=== PATIENT | male | born 1955 | race Caucasian/White ===

== ENCOUNTER 2017-08-01 19:45 | Emergency (ER) | payer BC, OTHER ==
[2017-08-01] MEDS ORDERED: HYDROcodone/Acetaminophen 10/325 mg Tablet ONE (21:04)
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
== END 2017-08-01 23:30 | disposition home or self-care (01) ==
LOC: ERS 19:45
DX: S83.92XA Sprain of unspecified site of left knee, initial encounter (principal); S83.91XA Sprain of unspecified site of right knee, initial encounter; I25.2 Old myocardial infarction; E11.9 Type 2 diabetes mellitus without complications; Z87.891 Personal history of nicotine dependence; Z79.84 Long term (current) use of oral hypoglycemic drugs; W18.30XA Fall on same level, unspecified, initial encounter

== ENCOUNTER 2018-01-12 21:28 | Inpatient (IN) | payer BC ==
[2018-01-12 23:18] LABS: #Eosinphils 0.2 thou/uL (0.0-0.7); #Lymphocytes 1.7 thou/uL (1.20-3.40); #Monocytes 0.6 thou/uL (0.11-0.59); %Basophils 0.3 % (0.0-1.0); %Eosinophils 1.7 % (0.0-10.0); %Lymphocytes 17.5 % (21.0-51.0); %Monocytes 6.5 % (0.0-10.0); Mean Corpuscular HGB CONC 33.6 g/dL (32.0-36.0); Mean Corpuscular Hemoglobin 29.6 pg (27.0-31.0); Mean Corpuscular Volume 87.9 fl (80.0-94.0); Mean Platelet Volume 6.8 fL (7.4-10.4); Platelet Count 171 thou/uL (130-400); RBC Distribution Width 12.6 % (11.5-14.5); Red Blood Cell (RBC) Count 4.05 mill/uL (4.70-6.10); White Blood Cell (WBC) Count 9.5 thou/uL (4.8-10.8)
[2018-01-12 23:53] LABS: ALT (SGPT) 37 U/L (8-55); AST (SGOT) 60 U/L (5-34); Albumin 4.1 g/dL (3.5-5.0); Alkaline Phosphatase 146 U/L (40-150); Anion Gap 13 mmol/L (10-20); BUN (Urea Nitrogen) 24 mg/dL (8.4-25.7); Bilirubin, Total 0.5 mg/dL (0.2-1.2); Calc. Creatinine Clearance 0 mL/min (70-130); Calcium 10.8 mg/dL (7.8-10.44); Carbon Dioxide 30 mmol/L (22-29); Chloride 94 mmol/L (98-107); Estimated GFR-MDRD 47; Globulin 4.3 g/dL (2.4-3.5); Glucose 386 mg/dL (70-105); Potassium 4.5 mmol/L (3.5-5.1); Protein, Total 8.4 g/dL (6.0-8.3); Sodium 132 mmol/L (136-145)
[2018-01-13] MEDS ORDERED: Sodium Chloride 0.9% 0 ML ONE (00:46)
[2018-01-13] MEDS ORDERED: Mag-Al 1200 mg/1200 mg/30 ML UDCUP ONE (00:46)
[2018-01-13] MEDS ORDERED: Piperacillin/Tazobactam 4.5 GM VIAL ONE (00:46)
[2018-01-13] MEDS ORDERED: Sodium Chloride 0.9% 100 ML ONE (00:47)
[2018-01-13 02:03] VITALS: BMI 41.2
[2018-01-13] MEDS ORDERED: Dextrose 5% in Water 1,000 ML IV PRN ×2 (02:11→10:41)
[2018-01-13] MEDS ORDERED: Senokot 8.6 MG TAB PO PRN (02:11)
[2018-01-13] MEDS ORDERED: Acetaminophen 325 MG TAB PO PRN (02:11)
[2018-01-13] MEDS ORDERED: Dextrose 50% Abboject 50 ML SYRINGE SLOW IVP PRN ×2 (02:11→10:41)
[2018-01-13] MEDS ORDERED: Enoxaparin Sodium 40 MG/0.4 ML SYRINGE SC SCH (02:15)
--- NOTE | 2018-01-13 02:30 | PDOC.FPRHP ---
- History of Present Illness Chief Complaint: diabetic foot ulcer History of Present Illness: 62 M comes in for evaluation of diabetic foot ulcer. Was seen in clinic 1 week ago and started on clindamycin, was told would receive wound care referral but was never called for appointment. was changing dressing and there was more purulence today so she decided to take patient to Ed for further evaluation. Patient states there is mild increase in typical neuropathic pain, describe as shock, no other pain. Denies fevers, chills, or sweats. Has noticed redness in legs increasing over the last few days. ED Course: Magnesium, vanc, zosyn 3V foot X-ray - Allergies/Adverse Reactions Allergies Allergy/AdvReac Type Severity Reaction Status Date / Time codeine Allergy Verified 03/13/16 08:45 Fish Containing Products Allergy Verified 03/13/16 08:45 - Home Medications Medication Instructions Recorded Confirmed Type Glimepiride [Amaryl] 4 mg PO BID 03/13/16 01/13/18 History metFORMIN HCl 1,000 mg PO BID 03/13/16 01/13/18 History Aspirin [Ecotrin Regular Strength] 325 mg PO DAILY #0 tab 03/18/16 01/13/18 Rx Carvedilol [Coreg] 12.5 mg PO BID #0 tab 03/18/16 01/13/18 Rx Lisinopril [Zestril] 2.5 mg PO DAILY #0 tab 03/18/16 01/13/18 Rx Amitriptyline HCl [Elavil] 100 mg PO HS 01/13/18 01/13/18 History Cholecalciferol (Vitamin D3) 1,000 unit PO DAILY 01/13/18 01/13/18 History [Vitamin D] Clindamycin [Cleocin] 150 mg PO BID 01/13/18 01/13/18 History Furosemide [Lasix] 40 mg PO DAILY 01/13/18 01/13/18 History Gabapentin 300 mg PO TID 01/13/18 01/13/18 History Hydrochlorothiazide 25 mg PO DAILY 01/13/18 01/13/18 History Insulin Glargine,Hum.Rec.Anlog 32 units SQ DAILY 01/13/18 01/13/18 History [Lantus] Potassium Chloride [K-Dur] 20 meq PO DAILY 01/13/18 01/13/18 History - History PMHx: PR 2 years ago, DM2 PSHx: CABG, appendectomy FHx: non-contributory Social: 27 year 2 ppd smoker, quit 1 year ago, no alcohol, occassional marijuana - Review of Systems General: denies: fever/chills, night sweats, fatigue Eyes: denies: eye pain, vision changes ENT: denies: nasal congestion, rhinorrhea Respiratory: denies: cough, congestion, shortness of breath Cardiovascular: reports: edema. denies: chest pain, palpitation Gastrointestinal: denies: nausea, diarrhea, constipation, abdominal pain, GI bleeding Genitourinary: denies: dysuria, polyuria Skin: reports: other (see hpi) Musculoskeletal: denies: pain, arthritis/arthralgias Neurological: denies: numbness, weakness Psychological: denies: anxiety, depression - Vital signs BP: 131/78 HR: 102 RR: Tmax: 99.4 Pox: 96% on RA Wt: 150kg - Physical Exam Constitutional: NAD, awake, alert and oriented HEENT: normocephalic and atraumatic, PERRLA, EOMI, grossly normal vision, MMM Neck: supple, FROM Heart: RRR, normal S1/S2, no murmurs/rubs/gallops -Heart: pulses present but dull at lower extremities, +2 pitting edema of the feet Lungs: CTAB, no respiratory distress, good air movement Abdomen: soft, non-tender, bowel sounds present Musculoskeletal: normal structure, ROM grossly normal Neurological: no focal deficit, CN II-XII intact, normal sensation -Neurological: sensation intact at feet bilaterally Skin: other (2cm ulcer on inferior lateral aspect of L foot, no active oozing) Heme/Lymphatic: no unusual bruising or bleeding Psychiatric: normal mood and affect FMR H&P: Results - Labs Result Diagrams: 01/13/18 03:40 01/13/18 03:40 Lab results: WBC 9.5 thou/uL (4.8-10.8) 01/12/18 23:07 Hgb 12.0 g/dL (14.0-18.0) L 01/12/18 23:07 Hct 35.6 % (42.0-52.0) L 01/12/18 23:07 MCV 87.9 fl (80.0-94.0) 01/12/18 23:07 Plt Count 171 thou/uL (130-400) 01/12/18 23:07 Neutrophils % 74.0 % (42.0-75.0) 01/12/18 23:07 Sodium 132 mmol/L (136-145) L 01/12/18 23:07 Potassium 4.5 mmol/L (3.5-5.1) 01/12/18 23:07 Chloride 94 mmol/L (98-107) L 01/12/18 23:07 Carbon Dioxide 30 mmol/L (22-29) H 01/12/18 23:07 BUN 24 mg/dL (8.4-25.7) 01/12/18 23:07 Creatinine 1.53 mg/dL (0.6-1.3) H 01/12/18 23:07 Glucose 386 mg/dL (70-105) H 01/12/18 23:07 Calcium 10.8 mg/dL (7.8-10.44) H 01/12/18 23:07 Total Bilirubin 0.5 mg/dL (0.2-1.2) 01/12/18 23:07 AST 60 U/L (5-34) H 01/12/18 23:07 ALT 37 U/L (8-55) 01/12/18 23:07 Alkaline Phosphatase 146 U/L (40-150) 01/12/18 23:07 Serum Total Protein 8.4 g/dL (6.0-8.3) H 01/12/18 23:07 Albumin 4.1 g/dL (3.5-5.0) 01/12/18 23:07 FMR H&P: A/P - Problem List (1) Diabetic foot ulcer Current Visit: Yes Status: Acute Code(s): E11.621 - TYPE 2 DIABETES MELLITUS WITH FOOT ULCER; L97.509 - NON-PRESSURE CHRONIC ULCER OTH PRT UNSP FOOT W UNSP SEVERITY (2) Abscess or cellulitis of foot Current Visit: Yes Status: Acute Code(s): L03.119 - CELLULITIS OF UNSPECIFIED PART OF LIMB; L02.619 - CUTANEOUS ABSCESS OF UNSPECIFIED FOOT (3) Nicotine abuse Current Visit: No Status: Acute Code(s): Z72.0 - TOBACCO USE (4) S/P CABG (coronary artery bypass graft) Current Visit: No Status: Acute Code(s): Z95.1 - PRESENCE OF AORTOCORONARY BYPASS GRAFT (5) Diabetes mellitus type 2 in obese Current Visit: No Status: Chronic Code(s): E11.9 - TYPE 2 DIABETES MELLITUS WITHOUT COMPLICATIONS; E66.9 - OBESITY, UNSPECIFIED (6) Morbid obesity Current Visit: No Status: Chronic Code(s): E66.01 - MORBID (SEVERE) OBESITY DUE TO EXCESS CALORIES - Plan # Cellulitus 2/2 diabetic foot ulcer - failed outpt. Clinda - Vanc/Zosyn - blood, wound cx pending - Wound care consulted - consider surgery consult for debridement - consider MRI to r/o osteo pending x-ray read, CRP/ESR - 3v foot x-ray pending - CRP, ESR pending # DM2 - titrating up outpatient lantus, currently at 32U daily - sugars have been above 300 - will start at Levemir 20BID - Accucheck qAC-HS - gabapentin 300 TID for neuropathic pain - Metformin 1000 BID, glimeperide 4mg - A1C # KIRSTIN - Cr 1.5 , baseline 1 - will hold lasix # HTN - home meds # Code - full # PPx - lovenox, SCDs FMR H&P: Upper Level - Pertinent history 62 male with uncontrolled DM who presents with 1 week of worsening foot ulcer of Left foot. He was started on outpatient clindamycin on tuesday but pain has worsened as well as glucose control. He has never had foot ulcer before and has never had any toes amputated. - Pertinent findings Gen: obese male in no acute distress HEENT: NC/AT, CONCEPCION,EOMI, MMM Resp: CTA, normal work of breathing CV: RRR, normal S1, S2, no murmur ABD: Soft nontender, nondistended Extremities: 1.5 cm ulcer on medial side of Left foot over distal portion of 5th metarsal. Surrounding tissue is cummings and tender. 1+ pitting edema in LE, pulses 2+ Psych: calm, normal affect and mood Neuro: moves all extremities symmetrically. He has loss of sensation competlely in toes and loss of sensation to light touch in legs. - Plan Date/Time: 01/13/18227 Chandra Bradley, have evaluated this patient and agree with findings/plan as outlined by consumer insights intern resident. Pertinent changes/additions are listed here. 1. Infected diabetic foot ulcer, Left foot, concern for osteomyolitis- Continue vanc and zosyn. pending plain film read. will consider MRI based on ESR and CRP 2. uncontrolled DM- started on insulin this week and is uptitrating. Will put on levemir 20 BID to start. Give 10 units of regular insulin now. 3. KIRSTIN vs CKD- unknown baseline but i suspect he has KIRSTIN. Will recheck in AM and add gentle fluids if needed. 4. peripheral edema- will hold on fluids for now but allow for oral fluids. will recheck in AM. 5. CAD- continue asa, beta shantel and RUBENS inhibitor 6. Tobacco abuse 7. Obesity- discussed role in diabetes. Attending Addendum - Attending Addendum Date/Time: 01/13/18 8445 I personally evaluated the patient and discussed the management with Dr. Limon/ Lacey. I agree with the History, Examination, Assessment and Plan documented above with any addition or exceptions noted below. Patient with history of uncontrolled DM presenting with infection and deep diabetic foot ulcer. He also has elevated ESR but no XR evidence of osteomyelitis. He will be started on antibiotic therapy, wound care, and will consult surgery for likely debridement. He was recently started on insulin therapy by PCP and we will escalate that therapy while here and maximize glycemic control as it will be very important for wound healing and decreasing infection.
[2018-01-13] MEDS ORDERED: NPH, Human Insulin Isophane 300 UNIT/3 ML VIAL SC SCH (03:15)
[2018-01-13 04:20] LABS: #Eosinphils 0.2 thou/uL (0.0-0.7); #Lymphocytes 1.6 thou/uL (1.20-3.40); #Monocytes 0.3 thou/uL (0.11-0.59); #Neutrophils 5.8 thou/uL (1.40-6.50); %Basophils 0.5 % (0.0-1.0); %Eosinophils 2.3 % (0.0-10.0); %Lymphocytes 20.4 % (21.0-51.0); %Monocytes 4.2 % (0.0-10.0); %Neutrophils 72.5 % (42.0-75.0); Hemoglobin 11.1 g/dL (14.0-18.0); Mean Corpuscular HGB CONC 34.5 g/dL (32.0-36.0); Mean Corpuscular Hemoglobin 30.2 pg (27.0-31.0); Mean Corpuscular Volume 87.4 fl (80.0-94.0); Mean Platelet Volume 6.9 fL (7.4-10.4); Platelet Count 151 thou/uL (130-400); RBC Distribution Width 12.7 % (11.5-14.5); Red Blood Cell (RBC) Count 3.69 mill/uL (4.70-6.10); White Blood Cell (WBC) Count 8.1 thou/uL (4.8-10.8)
[2018-01-13 04:28] LABS: Anion Gap 13 mmol/L (10-20); BUN (Urea Nitrogen) 22 mg/dL (8.4-25.7); Calc. Creatinine Clearance 129 mL/min (70-130); Calcium 10.1 mg/dL (7.8-10.44); Carbon Dioxide 26 mmol/L (22-29); Chloride 96 mmol/L (98-107); Estimated GFR-MDRD 57; Glucose 327 mg/dL (70-105); Potassium 4.1 mmol/L (3.5-5.1); Sodium 131 mmol/L (136-145)
[2018-01-13] MEDS: Piperacillin/Tazobactam 4.5 GM in Sodium Chloride 0.9% 100 ML IVPB SCH ×3 (05:21→18:37)
[2018-01-13] MEDS ORDERED: Clindamycin/D5W 900 MG in Premix Bag 1 BAG IVPB SCH (06:00)
[2018-01-13] MEDS: Insulin Detemir 100 UNITS/ML 20 UNITS in Pre-Filled Syringe 1 EACH SC SCH ×2 (07:59→22:22)
[2018-01-13] MEDS: metFORMIN 500 MG TAB PO SCH (08:00)
[2018-01-13] MEDS ORDERED: Glimepiride 4 MG TAB PO SCH (08:00)
[2018-01-13] MEDS: Hydrochlorothiazide 25 MG TAB PO SCH (08:01)
[2018-01-13] MEDS: Carvedilol 6.25 MG TAB PO SCH ×2 (08:01→18:37)
[2018-01-13] MEDS: Gabapentin 300 MG CAP PO SCH ×4 (08:02→22:28)
[2018-01-13] MEDS: Aspirin 325 mg Enteric Coated Tablet PO SCH (08:02)
[2018-01-13] MEDS: Lisinopril 2.5 MG TAB PO SCH (08:02)
[2018-01-13] MEDS: Docusate 100 MG CAP PO SCH ×2 (08:13→22:28)
--- NOTE | 2018-01-13 08:45 | RAD ---
3 VIEWS LEFT FOOT: Date: 01/13/18 COMPARISON: None. HISTORY: Left foot ulcer for 1 week. FINDINGS: Three views of the left foot show moderate dorsal soft tissue swelling. Diabetic vascular calcificati ons are seen. There is no evidence of acute fracture or dislocation. No osseous erosions are seen. IMPRESSION: Soft tissue swelling without underlying osseous abnormality. POS: OFF
[2018-01-13] MEDS ORDERED: Furosemide 40 MG/4 ML VIAL SLOW IVP SCH (09:00)
[2018-01-13] MEDS ORDERED: Carvedilol 6.25 MG TAB PO SCH (09:00)
[2018-01-13] MEDS ORDERED: Vancomycin HCl 1.5 GM in Sodium Chloride 0.9% 250 ML 300 ML IVPB SCH (09:00)
[2018-01-13] MEDS: HumaLOG 300 UNITS/3 ML VIAL SC PRN (11:55)
[2018-01-13] MEDS ORDERED: Fentanyl 100 MCG/2 ML VIAL ONE ×2 (15:54→16:03)
[2018-01-13] MEDS ORDERED: PROPOFOL 200 MG/20 ML VIAL ONE (15:56)
[2018-01-13] MEDS ORDERED: Lidocaine 1% PF 5 ML VIAL ONE (15:56)
[2018-01-13] MEDS ORDERED: Ondansetron HCl/PF 4 MG/2 ML Vial ONE (15:56)
--- NOTE | 2018-01-13 16:02 | HP ---
HISTORY OF PRESENT ILLNESS: Mr. Andrews Carbone is a 62-year-old diabetic male who presents to the em ergency room, admitted by Family Practice, fed a regular diet this morning and I was consulted for di abetic left foot ulceration. The patient has been dealing with this for sometime. He is insulin-dep endent diabetic. He is morbidly obese, 6 foot 3 inches, 330 pounds, 41 BMI. Plain radiographs do no t reveal osteomyelitis, but he has a large eschar at the metatarsophalangeal joint of the left fifth toe with a foul smell and cellulitis over the dorsum of the foot and surrounding blistering of the sk in. ALLERGIES: CODEINE and FISH PRODUCTS. TOBACCO: None. ALCOHOL: None. MEDICATIONS: Insulin 32 units daily, potassium chloride 20 mEq daily, hydrochlorothiazide 25 mg arti y, gabapentin 300 mg t.i.d., vitamin D3 daily, Elavil 100 mg at bedtime, clindamycin 50 mg b.i.d., La six 40 mg daily, aspirin 325 mg daily, Amaryl 4 mg p.o. b.i.d., Coreg 12.5 mg b.i.d., lisinopril 2.5 mg daily and metformin 1000 b.i.d. In the hospital, he has been started on vancomycin without Gram-n egative coverage. PAST SURGICAL HISTORY: Coronary artery bypass grafting x5 vessels 03/14/2016. On 10/18/2010, a rupt ured appendicitis with abscess, not amenable to percutaneous drainage. Laparoscopic converted to ope n appendectomy with drainage of the abscess, delayed wound closure. Colonoscopy never. The patient is a retired pipelayer. REVIEW OF SYSTEMS: Ten-point noncontributory otherwise. PHYSICAL EXAMINATION: VITAL SIGNS: Height 6 foot 3 inches, weigh 330 pounds, 41 BMI. Temperature 98.5, pulse 88 and blood pressure 120/64. HEENT: Unremarkable. LUNGS: Clear to auscultation. CARDIAC: Regular rate and rhythm without murmur or gallop. ABDOMEN: Soft and obese. Midline incision about the umbilicus, well-healed umbilical hernia present . EXTREMITIES: Palpable pedal pulses. Left foot plantar eschar, 3.5 cm diameter, foul smell gangrenou s necrotic wound with dorsal foot cellulitis. ASSESSMENT AND PLAN: 1. Diabetic infection, left foot. We will plan emergent exploration, most likely amputation of left fifth toe and metatarsal healing by second intention by wound VAC application. He understands the r isks and benefits and consents. 2. Diabetes mellitus. 3. Morbid obesity.
[2018-01-13] MEDS ORDERED: Midazolam HCl 2 mg/2 ml Vial ONE (16:03)
[2018-01-13] MEDS ORDERED: Insulin Regular 300 UNITS/3 ML VIAL ONE (16:08)
[2018-01-13] MEDS ORDERED: Acetaminophen 500 MG TAB PO PRN (16:39)
[2018-01-13] MEDS ORDERED: traMADol HCl 50 MG TAB PO PRN (16:39)
[2018-01-13] MEDS: Amitriptyline HCl 100 MG TAB PO SCH (22:28)
[2018-01-13] MEDS: traMADol HCl 50 MG TAB PO PRN (22:28)
[2018-01-13] MEDS: Atorvastatin Calcium 40 MG TAB PO SCH (22:28)
[2018-01-14] MEDS: Morphine 4 MG/ML VIAL SLOW IVP PRN ×2 (00:48→09:54)
[2018-01-14] MEDS: Piperacillin/Tazobactam 4.5 GM in Sodium Chloride 0.9% 100 ML IVPB SCH ×5 (02:59→20:31)
[2018-01-14 07:09] LABS: Anion Gap 13 mmol/L (10-20); BUN (Urea Nitrogen) 20 mg/dL (8.4-25.7); Calc. Creatinine Clearance 122 mL/min (70-130); Calcium 8.8 mg/dL (7.8-10.44); Carbon Dioxide 23 mmol/L (22-29); Chloride 102 mmol/L (98-107); Estimated GFR-MDRD 53; Glucose 198 mg/dL (70-105); Potassium 4.2 mmol/L (3.5-5.1); Sodium 134 mmol/L (136-145)
--- NOTE | 2018-01-14 07:58 | PDOC.FM ---
- Subjective Subjective: Patient reports that the pain in his foot has improved since the amputation. He has been off of his feet. He has some pain whenever he moves his foot though. He is tolerating a diet and denies N/V. - Objective MAR Reviewed: Yes Vital Signs & Weight: Vital Signs (12 hours) Temp Pulse Resp BP Pulse Ox 01/14/18 07:27 98.1 F 89 18 147/74 H 91 L 01/14/18 03:00 97.9 F 83 18 132/76 92 L 01/14/18 00:00 97.9 F 82 18 122/72 91 L 01/13/18 20:00 98.2 F 85 20 120/75 97 Weight Admit Weight 149.685 kg Weight 149.685 kg I&O: 01/13/18 01/14/18 01/15/18 06:59 06:59 06:59 Intake Total 800 Balance 800 Result Diagrams: 01/13/18 03:40 01/14/18 06:29 <Bonnie Paiz - Last Filed: 01/14/18 07:56> - Objective Vital Signs & Weight: Vital Signs (12 hours) Temp Pulse Resp BP BP Pulse Ox 01/15/18 08:32 140/78 01/15/18 08:31 85 140/78 01/15/18 08:00 98.2 F 85 16 01/15/18 07:09 98.2 F 85 16 140/78 91 L Weight Admit Weight 330 lb Weight 330 lb Result Diagrams: 01/13/18 03:40 01/14/18 06:29 <Flex Mcintyre - Last Filed: 01/15/18 11:20> Phys Exam - Physical Examination Constitutional: NAD HEENT: moist MMs Respiratory: no wheezing, no rales, no rhonchi, clear to auscultation bilateral Cardiovascular: RRR, no significant murmur, no rub Gastrointestinal: soft, non-tender, no distention, positive bowel sounds Musculoskeletal: no edema, pulses present Neurological: non-focal, moves all 4 limbs Psychiatric: normal affect, A&O x 3 Skin: normal turgor, cap refill <2 seconds Deviation from normal: dressing in place covering L small toe amputation <Bonnie Paiz - Last Filed: 01/14/18 07:56> Dx/Plan (1) Status post amputation of lesser toe of left foot Code(s): Z89.422 - ACQUIRED ABSENCE OF OTHER LEFT TOE(S) Status: Acute (2) Abscess or cellulitis of foot Code(s): L03.119 - CELLULITIS OF UNSPECIFIED PART OF LIMB; L02.619 - CUTANEOUS ABSCESS OF UNSPECIFIED FOOT Status: Acute (3) Diabetic foot ulcer Code(s): E11.621 - TYPE 2 DIABETES MELLITUS WITH FOOT ULCER; L97.509 - NON- PRESSURE CHRONIC ULCER OTH PRT UNSP FOOT W UNSP SEVERITY Status: Acute QualifierTitle: Diabetic foot ulcer location: toe Diabetes mellitus type : type 2 Laterality: left Non-pressure ulcer stage: unspecified non- pressure ulcer stage Qualified Code(s): E11.621 - Type 2 diabetes mellitus with foot ulcer; L97.529 - Non-pressure chronic ulcer of other part of left foot with unspecified severity; L97.529 - Non-pressure chronic ulcer of other part of left foot with unspecified severity; L97.529 - Non-pressure chronic ulcer of other part of left foot with unspecified severity; L97.529 - Non- pressure chronic ulcer of other part of left foot with unspecified severity (4) Nicotine abuse Code(s): Z72.0 - TOBACCO USE Status: Acute (5) S/P CABG (coronary artery bypass graft) Code(s): Z95.1 - PRESENCE OF AORTOCORONARY BYPASS GRAFT Status: Acute (6) Diabetes mellitus type 2 in obese Code(s): E11.9 - TYPE 2 DIABETES MELLITUS WITHOUT COMPLICATIONS; E66.9 - OBESITY , UNSPECIFIED Status: Chronic (7) Morbid obesity Code(s): E66.01 - MORBID (SEVERE) OBESITY DUE TO EXCESS CALORIES Status: Chronic - Plan Plan: Gangrenous diabetic foot ulcer on L lesser toe failed outpt. Clinda, s/p amputation on 01/[address] Paz Wound cx growing Gram + cocci in pairs, Gram + rods, Gram - rods, Gram - coccobaccilli - Vanc/Zosyn - blood, wound cx pending - Wound care consulted - General surgery on board, appreciate recs DM2 outpatient lantus at 32U daily. A1c 11.0 - sugars have improved since amputation - will start at Levemir 20BID - Accucheck qAC-HS - gabapentin 300 TID for neuropathic pain - Metformin 1000 BID, glimeperide 4mg KIRSTIN - Cr 1.36 , baseline 1 - will hold lasix - Monitor HTN - home meds <Bonnie Paiz - Last Filed: 01/14/18 07:56> Attending Addendum - Attending Addendum Date/Time: 01/15/18 1118 I personally evaluated the patient and discussed the management with Dr. Paiz I agree with the History, Examination, Assessment and Plan documented above with any addition or exceptions noted below. The patient is POD # 1 s/p L small toe amputation with Dr. Paz for gangrenous diabetic toe ulcer. Will continue IV abx. Wound care eval. Pain control with PO pain medication. <Flex Mcintyre - Last Filed: 01/15/18 11:20>
[2018-01-14] MEDS: traMADol HCl 50 MG TAB PO PRN ×3 (08:50→20:31)
[2018-01-14] MEDS: Aspirin 325 mg Enteric Coated Tablet PO SCH (08:50)
[2018-01-14] MEDS: Carvedilol 6.25 MG TAB PO SCH ×2 (08:51→16:42)
[2018-01-14] MEDS: metFORMIN 500 MG TAB PO SCH (08:52)
[2018-01-14] MEDS: Gabapentin 300 MG CAP PO SCH ×3 (08:52→20:30)
[2018-01-14] MEDS: Docusate 100 MG CAP PO SCH ×2 (08:53→20:31)
[2018-01-14] MEDS: Hydrochlorothiazide 25 MG TAB PO SCH (08:53)
[2018-01-14] MEDS: Insulin Detemir 100 UNITS/ML 20 UNITS in Pre-Filled Syringe 1 EACH SC SCH ×2 (08:54→20:33)
[2018-01-14] MEDS: Lisinopril 2.5 MG TAB PO SCH (08:55)
[2018-01-14] MEDS ORDERED: Morphine 4 MG/ML VIAL SLOW IVP PRN (10:22)
[2018-01-14] MEDS: HumaLOG 300 UNITS/3 ML VIAL SC PRN ×3 (11:33→20:34)
[2018-01-14] MEDS: Acetaminophen 500 MG TAB PO SCH ×3 (13:56→23:46)
[2018-01-14 20:28] LABS: Vancomycin, Trough 22.3 ug/mL
[2018-01-14] MEDS: Amitriptyline HCl 100 MG TAB PO SCH (20:30)
[2018-01-14] MEDS: Atorvastatin Calcium 40 MG TAB PO SCH (20:30)
[2018-01-14] MEDS: Vancomycin HCl 1.5 GM in Sodium Chloride 0.9% 250 ML 300 ML IVPB SCH (21:41)
[2018-01-15] MEDS: Piperacillin/Tazobactam 4.5 GM in Sodium Chloride 0.9% 100 ML IVPB SCH ×4 (03:45→21:50)
[2018-01-15] MEDS: Acetaminophen 500 MG TAB PO SCH ×4 (05:06→23:14)
[2018-01-15] MEDS: HumaLOG 300 UNITS/3 ML VIAL SC PRN ×3 (05:09→16:26)
--- NOTE | 2018-01-15 07:51 | PDOC.FM ---
- Subjective Subjective: Patient reports that his pain is well controlled when he stays off of his foot, but he has pain when he puts any pressure on his foot at all. He is tolerating PO well. He has not had a BM since being in the hospital, but he is passing flatus. - Objective MAR Reviewed: Yes Vital Signs & Weight: Vital Signs (12 hours) Temp Pulse Resp BP Pulse Ox 01/15/18 07:09 98.2 F 85 16 140/78 91 L 01/14/18 20:00 97.9 F 82 18 Weight Admit Weight 149.685 kg Weight 149.685 kg Result Diagrams: 01/13/18 03:40 01/14/18 06:29 <Bonnie Paiz - Last Filed: 01/15/18 07:49> - Objective Vital Signs & Weight: Vital Signs (12 hours) Temp Pulse Resp BP BP Pulse Ox 01/15/18 08:32 140/78 01/15/18 08:31 85 140/78 01/15/18 08:00 98.2 F 85 16 01/15/18 07:09 98.2 F 85 16 140/78 91 L Weight Admit Weight 330 lb Weight 330 lb Result Diagrams: 01/13/18 03:40 01/14/18 06:29 <Flex Mcintyre - Last Filed: 01/15/18 11:21> Phys Exam - Physical Examination Constitutional: NAD HEENT: moist MMs Respiratory: no wheezing, no rales, no rhonchi, clear to auscultation bilateral Cardiovascular: RRR, no significant murmur, no rub Gastrointestinal: soft, non-tender, no distention, positive bowel sounds Musculoskeletal: no edema, pulses present Neurological: non-focal, normal sensation Psychiatric: normal affect, A&O x 3 Deviation from normal: Dressing in place with wound vac over L small toe amputation <Bonnie Paiz - Last Filed: 01/15/18 07:49> Dx/Plan (1) Status post amputation of lesser toe of left foot Code(s): Z89.422 - ACQUIRED ABSENCE OF OTHER LEFT TOE(S) Status: Acute (2) Abscess or cellulitis of foot Code(s): L03.119 - CELLULITIS OF UNSPECIFIED PART OF LIMB; L02.619 - CUTANEOUS ABSCESS OF UNSPECIFIED FOOT Status: Acute (3) Diabetic foot ulcer Code(s): E11.621 - TYPE 2 DIABETES MELLITUS WITH FOOT ULCER; L97.509 - NON- PRESSURE CHRONIC ULCER OTH PRT UNSP FOOT W UNSP SEVERITY Status: Acute QualifierTitle: Diabetic foot ulcer location: toe Diabetes mellitus type : type 2 Laterality: left Non-pressure ulcer stage: unspecified non- pressure ulcer stage Qualified Code(s): E11.621 - Type 2 diabetes mellitus with foot ulcer; L97.529 - Non-pressure chronic ulcer of other part of left foot with unspecified severity; L97.529 - Non-pressure chronic ulcer of other part of left foot with unspecified severity; L97.529 - Non-pressure chronic ulcer of other part of left foot with unspecified severity; L97.529 - Non- pressure chronic ulcer of other part of left foot with unspecified severity (4) Nicotine abuse Code(s): Z72.0 - TOBACCO USE Status: Acute (5) S/P CABG (coronary artery bypass graft) Code(s): Z95.1 - PRESENCE OF AORTOCORONARY BYPASS GRAFT Status: Acute (6) Diabetes mellitus type 2 in obese Code(s): E11.9 - TYPE 2 DIABETES MELLITUS WITHOUT COMPLICATIONS; E66.9 - OBESITY , UNSPECIFIED Status: Chronic (7) Morbid obesity Code(s): E66.01 - MORBID (SEVERE) OBESITY DUE TO EXCESS CALORIES Status: Chronic - Plan Plan: Gangrenous diabetic foot ulcer on L lesser toe failed outpt. Clinda, s/p amputation on 01/[address] Paz Wound cx growing Gram + cocci in pairs, Gram + rods, Gram - rods, Gram - coccobaccilli - Vanc/Zosyn - blood, wound cx pending - Wound care consulted - General surgery on board, appreciate recs DM2 outpatient lantus at 32U daily. A1c 11.0 - sugars have improved since amputation - Levemir 20BID - Accucheck qAC-HS - gabapentin 300 TID for neuropathic pain - Metformin 1000 BID, glimeperide 4mg KIRSTIN - Cr 1.36, baseline 1 - will hold lasix - Monitor HTN - home meds <Bonnie Paiz - Last Filed: 01/15/18 07:49> Attending Addendum - Attending Addendum Date/Time: 01/15/18 1120 I personally evaluated the patient and discussed the management with Dr. Paiz I agree with the History, Examination, Assessment and Plan documented above with any addition or exceptions noted below. The patient is POD # 2 s/p L small toe amputation with Dr. Paz for gangrenous diabetic toe ulcer. Will continue IV abx. Wound care for wound vac. Pain control with PO pain medication. Patient is constipated, so will give bowel regimen. <Flex Mcintyre - Last Filed: 01/15/18 11:21>
[2018-01-15] MEDS: Polyethylene Glycol 3350 17 GM Packet PO SCH (08:31)
[2018-01-15] MEDS: Gabapentin 300 MG CAP PO SCH ×3 (08:31→21:48)
[2018-01-15] MEDS: Senokot S 8.6-50 MG TAB PO SCH ×2 (08:31→21:49)
[2018-01-15] MEDS: Hydrochlorothiazide 25 MG TAB PO SCH (08:31)
[2018-01-15] MEDS: Docusate 100 MG CAP PO SCH (08:31)
[2018-01-15] MEDS: Lisinopril 2.5 MG TAB PO SCH (08:31)
[2018-01-15] MEDS: metFORMIN 500 MG TAB PO SCH (08:32)
[2018-01-15] MEDS: Aspirin 325 mg Enteric Coated Tablet PO SCH (08:32)
[2018-01-15] MEDS: Carvedilol 6.25 MG TAB PO SCH ×2 (08:32→16:25)
[2018-01-15] MEDS: Insulin Detemir 100 UNITS/ML 20 UNITS in Pre-Filled Syringe 1 EACH SC SCH ×2 (09:39→21:51)
[2018-01-15] MEDS: Vancomycin HCl 1.5 GM in Sodium Chloride 0.9% 250 ML 300 ML IVPB SCH ×2 (09:46→21:54)
[2018-01-15] MEDS: traMADol HCl 50 MG TAB PO PRN (14:04)
[2018-01-15] MEDS: Atorvastatin Calcium 40 MG TAB PO SCH (21:48)
[2018-01-15] MEDS: Amitriptyline HCl 100 MG TAB PO SCH (21:49)
[2018-01-16] MEDS: Piperacillin/Tazobactam 4.5 GM in Sodium Chloride 0.9% 100 ML IVPB SCH ×2 (03:54→08:32)
[2018-01-16] MEDS: Acetaminophen 500 MG TAB PO SCH ×3 (05:34→17:09)
[2018-01-16] MEDS: HumaLOG 300 UNITS/3 ML VIAL SC PRN ×2 (05:34→11:53)
--- NOTE | 2018-01-16 06:17 | PDOC.FM ---
- Subjective Subjective: POD #3. Patient doing well this AM. No significant overnight events. Patient has avoided ambulating bc he thought he was told not to do so. Notes from Dr. Paz say to weight bear as tolerated and to ambulate in [place] 4x/day. Encouraged patient to ambulate with assistance. Patient still experiencing pain , particularly with wound vac changes. He inquired about pain medication today. Otherwise, patient is doing well. - Objective MAR Reviewed: Yes Vital Signs & Weight: Vital Signs (12 hours) Temp Pulse Resp BP Pulse Ox 01/15/18 20:00 98.2 F 93 20 154/66 H 92 L Weight Admit Weight 149.685 kg Weight 149.685 kg I&O: 01/14/18 01/15/18 01/16/18 06:59 06:59 06:59 Intake Total 2560 Output Total 2150 Balance 410 Result Diagrams: 01/13/18 03:40 01/16/18 07:18 EKG Reviewed by me: No Radiology Reviewed by me: Yes <Nayla Ogden - Last Filed: 01/16/18 08:39> - Objective Vital Signs & Weight: Vital Signs (12 hours) Temp Pulse Resp BP BP Pulse Ox 01/16/18 17:06 154/64 H 01/16/18 08:31 138/77 01/16/18 08:29 77 138/77 01/16/18 07:47 98.3 F 75 16 01/16/18 07:38 98.3 F 75 16 138/77 97 Weight Admit Weight 149.685 kg Weight 149.685 kg I&O: 01/15/18 01/16/18 01/17/18 06:59 06:59 06:59 Intake Total 2560 1000 Output Total 2150 2375 Balance 410 -1375 Result Diagrams: 01/13/18 03:40 01/16/18 07:18 <Zaria Heller - Last Filed: 01/16/18 19:07> Phys Exam - Physical Examination Constitutional: NAD HEENT: moist MMs Neck: no nodes Respiratory: clear to auscultation bilateral Cardiovascular: RRR, no significant murmur Gastrointestinal: soft, non-tender, no distention, positive bowel sounds Mild LE edema bilaterally Neurological: non-focal Psychiatric: normal affect Skin: normal turgor Deviation from normal: Wound dressing and wound vac in place over left lower extremity <Nayla Ogden - Last Filed: 01/16/18 08:39> Dx/Plan (1) Status post amputation of lesser toe of left foot Code(s): Z89.422 - ACQUIRED ABSENCE OF OTHER LEFT TOE(S) Status: Acute (2) Abscess or cellulitis of foot Code(s): L03.119 - CELLULITIS OF UNSPECIFIED PART OF LIMB; L02.619 - CUTANEOUS ABSCESS OF UNSPECIFIED FOOT Status: Acute (3) Diabetic foot ulcer Code(s): E11.621 - TYPE 2 DIABETES MELLITUS WITH FOOT ULCER; L97.509 - NON- PRESSURE CHRONIC ULCER OTH PRT UNSP FOOT W UNSP SEVERITY Status: Chronic QualifierTitle: Diabetic foot ulcer location: toe Diabetes mellitus type : type 2 Laterality: left Non-pressure ulcer stage: unspecified non- pressure ulcer stage Qualified Code(s): E11.621 - Type 2 diabetes mellitus with foot ulcer; L97.529 - Non-pressure chronic ulcer of other part of left foot with unspecified severity; L97.529 - Non-pressure chronic ulcer of other part of left foot with unspecified severity; L97.529 - Non-pressure chronic ulcer of other part of left foot with unspecified severity; L97.529 - Non- pressure chronic ulcer of other part of left foot with unspecified severity (4) Nicotine abuse Code(s): Z72.0 - TOBACCO USE Status: Chronic (5) S/P CABG (coronary artery bypass graft) Code(s): Z95.1 - PRESENCE OF AORTOCORONARY BYPASS GRAFT Status: Chronic (6) Diabetes mellitus type 2 in obese Code(s): E11.9 - TYPE 2 DIABETES MELLITUS WITHOUT COMPLICATIONS; E66.9 - OBESITY , UNSPECIFIED Status: Chronic (7) Morbid obesity Code(s): E66.01 - MORBID (SEVERE) OBESITY DUE TO EXCESS CALORIES Status: Chronic - Plan Plan: Gangrenous diabetic foot ulcer on L lesser toe failed outpt. Clinda, s/p amputation on 01/[address] Paz Wound cx growing strep anginosus, staph aureus, and enterococcus species - Sensitivities to vanc, but resistant to zosyn - Will d/c zosyn and continue vanc; will de-escalate pending gen sx recs - Wound care consulted - General surgery on board, appreciate recs - Pain control DM2 outpatient lantus at 32U daily. A1c 11.0 - Sugars have improved since amputation - Still requiring upwards of 16 units sliding scale insulin daily - Increase Levemir to 22 units AM and 25 units PM - Accucheck qAC-HS - Gabapentin 300 TID for neuropathic pain - Metformin 1000 BID, glimeperide 4mg KIRSTIN - Cr 1.36, baseline 1 - Will hold lasix - Monitor BMP - Cr improving HTN - Home meds Constipation - S/p bowel movement x1 - Continue bowel regimen <Nayla Ogden - Last Filed: 01/16/18 08:39> Attending Addendum - Attending Addendum Date/Time: 01/16/18 190 I personally evaluated the patient and discussed the management with Dr. Ogden. I agree with the History, Examination, Assessment and Plan documented above with any addition or exceptions noted below. The patient was concerned about pain with wound vac changes this morning. He didn't know what to expect. Will try to control pain with oral meds. He notes that he has taken hydrocodone without side effects in the past. Stopping zosyn as it is resistant. Continue vanc. f/u with surgery recs. <Zaria Heller - Last Filed: 01/16/18 19:07>
[2018-01-16 08:04] LABS: Anion Gap 11 mmol/L (10-20); BUN (Urea Nitrogen) 17 mg/dL (8.4-25.7); Calc. Creatinine Clearance 150 mL/min (70-130); Calcium 9.2 mg/dL (7.8-10.44); Carbon Dioxide 24 mmol/L (22-29); Chloride 102 mmol/L (98-107); Estimated GFR-MDRD 68; Glucose 188 mg/dL (70-105); Potassium 4.2 mmol/L (3.5-5.1); Sodium 133 mmol/L (136-145)
[2018-01-16] MEDS: Lisinopril 2.5 MG TAB PO SCH (08:29)
[2018-01-16] MEDS: Hydrochlorothiazide 25 MG TAB PO SCH (08:29)
[2018-01-16] MEDS: metFORMIN 500 MG TAB PO SCH (08:30)
[2018-01-16] MEDS: Senokot S 8.6-50 MG TAB PO SCH ×2 (08:30→20:45)
[2018-01-16] MEDS: Gabapentin 300 MG CAP PO SCH ×3 (08:30→20:45)
[2018-01-16] MEDS: Carvedilol 6.25 MG TAB PO SCH ×2 (08:31→17:06)
[2018-01-16] MEDS: Aspirin 325 mg Enteric Coated Tablet PO SCH (08:31)
[2018-01-16] MEDS: Polyethylene Glycol 3350 17 GM Packet PO SCH (08:32)
[2018-01-16] MEDS: Insulin Detemir 100 UNITS/ML 22 UNITS in Pre-Filled Syringe 1 EACH SC SCH (08:58)
[2018-01-16] MEDS ORDERED: Insulin Detemir 100 UNITS/ML 25 UNITS in Pre-Filled Syringe 1 EACH SC SCH (09:00)
[2018-01-16] MEDS: Vancomycin HCl 1.5 GM in Sodium Chloride 0.9% 250 ML 300 ML IVPB SCH (09:18)
[2018-01-16] MEDS: HYDROcodone/Acetaminophen 7.5/325 mg Tablet PO PRN ×3 (11:55→20:51)
[2018-01-16] MEDS: traMADol HCl 50 MG TAB PO PRN (14:05)
[2018-01-16] MEDS: Amitriptyline HCl 100 MG TAB PO SCH (20:44)
[2018-01-16] MEDS: Atorvastatin Calcium 40 MG TAB PO SCH (20:44)
[2018-01-16] MEDS: Amoxicillin/Potassium Clav 875 MG TAB PO SCH (20:44)
[2018-01-16] MEDS: Insulin Detemir 100 UNITS/ML 25 UNITS in Pre-Filled Syringe 1 EACH SC SCH (20:46)
[2018-01-17] MEDS: Acetaminophen 500 MG TAB PO SCH ×4 (00:20→16:57)
--- NOTE | 2018-01-17 06:24 | PDOC.FM ---
- Subjective Subjective: Patient doing well this AM. No significant overnight events. Patient slept well last night. His pain is well controlled. Discussed potential for going home if wound care got set up. Patient feels comfortable with going home on antibiotics with wound care HH or outpatient HH. - Objective MAR Reviewed: Yes Vital Signs & Weight: Vital Signs (12 hours) Temp Pulse Resp BP Pulse Ox 01/16/18 20:00 98.0 F 81 20 97 01/16/18 19:31 98.0 F 81 20 118/73 97 Weight Admit Weight 149.685 kg Weight 149.685 kg I&O: 01/15/18 01/16/18 01/17/18 06:59 06:59 06:59 Intake Total 2560 1360 Output Total 2150 4175 Balance 410 -5963 Result Diagrams: 01/13/18 03:40 01/16/18 07:18 EKG Reviewed by me: No Radiology Reviewed by me: Yes <Nayla Ogden - Last Filed: 01/17/18 08:55> - Objective Vital Signs & Weight: Vital Signs (12 hours) Temp Pulse Resp BP BP Pulse Ox 01/17/18 16:51 148/83 H 01/17/18 15:28 98.0 F 71 16 148/83 H 96 01/17/18 08:15 82 135/77 01/17/18 08:10 135/77 01/17/18 08:00 97.4 F L 82 20 97 Weight Admit Weight 149.685 kg Weight 149.685 kg I&O: 01/16/18 01/17/18 01/18/18 06:59 06:59 06:59 Intake Total 2560 1360 Output Total 2150 4175 Balance 410 -5806 Result Diagrams: 01/13/18 03:40 01/16/18 07:18 <Zaria Heller - Last Filed: 01/17/18 17:55> Phys Exam - Physical Examination Constitutional: NAD HEENT: moist MMs, sclera anicteric Neck: supple Respiratory: clear to auscultation bilateral Cardiovascular: RRR, no significant murmur Gastrointestinal: soft, non-tender, no distention, positive bowel sounds Difficult to palpate pulses Trace edema of LE's Neurological: non-focal Psychiatric: normal affect Deviation from normal: Left foot wrapped by wound care with wound vac in place -: No surrounding erythema <Bentley Ogdenistyn - Last Filed: 01/17/18 08:55> Dx/Plan (1) Status post amputation of lesser toe of left foot Code(s): Z89.422 - ACQUIRED ABSENCE OF OTHER LEFT TOE(S) Status: Acute (2) Abscess or cellulitis of foot Code(s): L03.119 - CELLULITIS OF UNSPECIFIED PART OF LIMB; L02.619 - CUTANEOUS ABSCESS OF UNSPECIFIED FOOT Status: Acute (3) Diabetic foot ulcer Code(s): E11.621 - TYPE 2 DIABETES MELLITUS WITH FOOT ULCER; L97.509 - NON- PRESSURE CHRONIC ULCER OTH PRT UNSP FOOT W UNSP SEVERITY Status: Chronic QualifierTitle: Diabetic foot ulcer location: toe Diabetes mellitus type : type 2 Laterality: left Non-pressure ulcer stage: unspecified non- pressure ulcer stage Qualified Code(s): E11.621 - Type 2 diabetes mellitus with foot ulcer; L97.529 - Non-pressure chronic ulcer of other part of left foot with unspecified severity; L97.529 - Non-pressure chronic ulcer of other part of left foot with unspecified severity; L97.529 - Non-pressure chronic ulcer of other part of left foot with unspecified severity; L97.529 - Non- pressure chronic ulcer of other part of left foot with unspecified severity (4) Nicotine abuse Code(s): Z72.0 - TOBACCO USE Status: Chronic (5) S/P CABG (coronary artery bypass graft) Code(s): Z95.1 - PRESENCE OF AORTOCORONARY BYPASS GRAFT Status: Chronic (6) Diabetes mellitus type 2 in obese Code(s): E11.9 - TYPE 2 DIABETES MELLITUS WITHOUT COMPLICATIONS; E66.9 - OBESITY , UNSPECIFIED Status: Chronic (7) Morbid obesity Code(s): E66.01 - MORBID (SEVERE) OBESITY DUE TO EXCESS CALORIES Status: Chronic - Plan Plan: Gangrenous diabetic foot ulcer on L lesser toe failed outpt. Clinda, s/p amputation on 01/[address] Paz Wound cx growing strep anginosus, staph aureus, and enterococcus species - Sensitivities to vanc, but resistant to zosyn - Transitioned to PO antibiotics yesterday; will continue for 10 days - Wound care consulted; Will need wound vac changes in outpatient clinic or - General surgery on board, appreciate recs - Pain control - Patient to follow up with Dr. Paz 2-3 weeks post-discharge DM2 outpatient lantus at 32U daily. A1c 11.0 - Sugars have improved since amputation - Required 6 units of SSI yesterday - Increase Levemir to 22 units AM and 25 units PM - Accucheck qAC-HS - Gabapentin 300 TID for neuropathic pain - Metformin 1000 BID, glimeperide 4 mg KIRSTIN, resolved - Baseline 1 - Cr improving HTN - Home meds Constipation - S/p bowel movement x1 - Continue bowel regimen Dispo: Anticipate discharge home today on oral antibiotics with close general surgery follow up in 2-3 weeks. Discharge pending getting set up for wound vac vs outpatient wound vac changes <Nayla Ogden - Last Filed: 01/17/18 08:55> Attending Addendum - Attending Addendum Date/Time: 01/17/18 3106 I personally evaluated the patient and discussed the management with Dr. Ogden. I agree with the History, Examination, Assessment and Plan documented above with any addition or exceptions noted below. Patient may be able to discharge today if wound care is set up. Will give order for walker. Transitioning to po antibiotics. <Zaria Heller - Last Filed: 01/17/18 17:55>
[2018-01-17] MEDS: Amoxicillin/Potassium Clav 875 MG TAB PO SCH ×2 (08:06→19:42)
[2018-01-17] MEDS: metFORMIN 500 MG TAB PO SCH (08:07)
[2018-01-17] MEDS: Senokot S 8.6-50 MG TAB PO SCH ×2 (08:07→19:42)
[2018-01-17] MEDS: HYDROcodone/Acetaminophen 7.5/325 mg Tablet PO PRN ×3 (08:08→22:22)
[2018-01-17] MEDS: Carvedilol 6.25 MG TAB PO SCH ×2 (08:10→16:51)
[2018-01-17] MEDS: Hydrochlorothiazide 25 MG TAB PO SCH (08:10)
[2018-01-17] MEDS: Gabapentin 300 MG CAP PO SCH ×3 (08:10→19:42)
[2018-01-17] MEDS: Aspirin 325 mg Enteric Coated Tablet PO SCH (08:11)
[2018-01-17] MEDS: Polyethylene Glycol 3350 17 GM Packet PO SCH (08:11)
[2018-01-17] MEDS: Lisinopril 2.5 MG TAB PO SCH (08:15)
[2018-01-17] MEDS: Insulin Detemir 100 UNITS/ML 22 UNITS in Pre-Filled Syringe 1 EACH SC SCH (08:58)
--- NOTE | 2018-01-17 12:42 | OP ---
DATE OF PROCEDURE: 01/13/2018 PREOPERATIVE DIAGNOSIS: Diabetic gangrene left small toe with gas in the soft tissues and neuropathi c ulceration and gangrene, medial metatarsophalangeal joint area. POSTOPERATIVE DIAGNOSIS: Diabetic gangrene left small toe with gas in the soft tissues and neuropath ic ulceration and gangrene, medial metatarsophalangeal joint area. PROCEDURE PERFORMED: Amputation of left small toe and metatarsal, culture and sensitivity submitted to Microbiology. Wound left open for healing by secondary intention. FINDINGS: Gangrenous tissue with gas from the soft tissues . SURGEON: Dr. Erasmo Paz. ANESTHESIA: General. BLEEDING: Resected margins. PROCEDURE IN DETAIL: The patient was taken to the operating room where under general anesthesia, lef t lower extremity was prepped with ChloraPrep, draped in routine fashion. Left small toe and metatar luis amputated with a racquet incision, preserving as much skin as possible, resecting the neuropathic ulceration, plantar lateral. The metatarsal resected with a bone cutter and resected proximally wit h rongeur. Connective tissue debrided sharply. Wound irrigated. Gauze dressing applied and VAC lisa ssing to be applied tomorrow.
[2018-01-17] MEDS: HumaLOG 300 UNITS/3 ML VIAL SC PRN (16:52)
[2018-01-17] MEDS: Insulin Detemir 100 UNITS/ML 25 UNITS in Pre-Filled Syringe 1 EACH SC SCH (19:41)
[2018-01-17] MEDS: Atorvastatin Calcium 40 MG TAB PO SCH (19:42)
[2018-01-17] MEDS: Amitriptyline HCl 100 MG TAB PO SCH (19:48)
[2018-01-18] MEDS: Acetaminophen 500 MG TAB PO SCH ×3 (00:25→11:41)
--- NOTE | 2018-01-18 05:04 | PDOC.FM ---
- Subjective Subjective: Patient doing well this AM. No significant overnight events. Waiting for potential approval for wound vac as well as walker. Otherwise, patient states he is ready to go home. He has been ambulating with minimal assistance and pain seems to be well controlled. - Objective MAR Reviewed: Yes Vital Signs & Weight: Vital Signs (12 hours) Temp Pulse Resp BP Pulse Ox 01/17/18 20:00 98.3 F 80 20 139/80 94 L Weight Admit Weight 149.685 kg Weight 149.685 kg I&O: 01/16/18 01/17/18 01/18/18 06:59 06:59 06:59 Intake Total 2560 1360 Output Total 2150 4175 Balance 410 -2815 Result Diagrams: 01/13/18 03:40 01/16/18 07:18 EKG Reviewed by me: No Radiology Reviewed by me: Yes <Nayla Ogden - Last Filed: 01/18/18 08:32> - Objective Vital Signs & Weight: Vital Signs (12 hours) Temp Pulse Resp BP BP BP Pulse Ox 01/18/18 12:04 97.9 F 78 20 146/92 H 96 01/18/18 08:00 98.1 F 77 20 95 01/18/18 07:28 134/86 01/18/18 07:26 77 134/86 01/18/18 07:21 98.1 F 77 16 134/86 95 Weight Admit Weight 149.685 kg Weight 149.685 kg I&O: 01/17/18 01/18/18 01/19/18 06:59 06:59 06:59 Intake Total 1360 Output Total 4175 Balance -2815 Result Diagrams: 01/13/18 03:40 01/16/18 07:18 <Zaria Heller - Last Filed: 01/18/18 14:21> Phys Exam - Physical Examination Constitutional: NAD HEENT: moist MMs Neck: supple Respiratory: clear to auscultation bilateral Cardiovascular: RRR, no significant murmur Gastrointestinal: soft, no distention, positive bowel sounds Pulses difficult to palpate. Trace LE edema. Neurological: non-focal Psychiatric: normal affect Deviation from normal: Left foot wrapped in bandage per wound care. -: No surrounding erythema. Wound vac in place. <Nayla Ogden - Last Filed: 01/18/18 08:32> Dx/Plan (1) Status post amputation of lesser toe of left foot Code(s): Z89.422 - ACQUIRED ABSENCE OF OTHER LEFT TOE(S) Status: Acute (2) Abscess or cellulitis of foot Code(s): L03.119 - CELLULITIS OF UNSPECIFIED PART OF LIMB; L02.619 - CUTANEOUS ABSCESS OF UNSPECIFIED FOOT Status: Acute (3) Diabetic foot ulcer Code(s): E11.621 - TYPE 2 DIABETES MELLITUS WITH FOOT ULCER; L97.509 - NON- PRESSURE CHRONIC ULCER OTH PRT UNSP FOOT W UNSP SEVERITY Status: Chronic QualifierTitle: Diabetic foot ulcer location: toe Diabetes mellitus type : type 2 Laterality: left Non-pressure ulcer stage: unspecified non- pressure ulcer stage Qualified Code(s): E11.621 - Type 2 diabetes mellitus with foot ulcer; L97.529 - Non-pressure chronic ulcer of other part of left foot with unspecified severity; L97.529 - Non-pressure chronic ulcer of other part of left foot with unspecified severity; L97.529 - Non-pressure chronic ulcer of other part of left foot with unspecified severity; L97.529 - Non- pressure chronic ulcer of other part of left foot with unspecified severity (4) Nicotine abuse Code(s): Z72.0 - TOBACCO USE Status: Chronic (5) S/P CABG (coronary artery bypass graft) Code(s): Z95.1 - PRESENCE OF AORTOCORONARY BYPASS GRAFT Status: Chronic (6) Diabetes mellitus type 2 in obese Code(s): E11.9 - TYPE 2 DIABETES MELLITUS WITHOUT COMPLICATIONS; E66.9 - OBESITY , UNSPECIFIED Status: Chronic (7) Morbid obesity Code(s): E66.01 - MORBID (SEVERE) OBESITY DUE TO EXCESS CALORIES Status: Chronic - Plan Plan: Gangrenous diabetic foot ulcer on L lesser toe failed outpt. Clinda, s/p amputation on 01/[address] Paz Wound cx growing strep anginosus, staph aureus, and enterococcus species - Transitioned to PO antibiotics 2 days ago; will continue for 14 days post- discharge, which is around when patient should be following with Dr. Paz. - Wound care consulted; Will need wound vac changes in outpatient clinic or - General surgery on board, appreciate recs - Pain control; will be sent home with tramadol script - Patient to follow up with Dr. Paz 2-3 weeks post-discharge DM2 outpatient lantus at 32U daily. A1c 11.0 - Sugars have improved since amputation - Required 2 units of SSI yesterday - Levemir to 22 units AM and 25 units PM - Accucheck qAC-HS - Gabapentin 300 TID for neuropathic pain - Metformin 1000 BID, glimeperide 4 mg KIRSTIN, resolved - Baseline 1 HTN - Home meds Constipation - S/p bowel movement x1 - Continue bowel regimen Dispo: Anticipate discharge home today on oral antibiotics with close general surgery follow up in 2-3 weeks. Discharge pending getting set up for wound vac vs outpatient wound vac changes. Also awaiting walker. <Nayla Ogden - Last Filed: 01/18/18 08:32> Attending Addendum - Attending Addendum Date/Time: 01/18/18 1420 I personally evaluated the patient and discussed the management with Dr. Ogden. I agree with the History, Examination, Assessment and Plan documented above with any addition or exceptions noted below. The patient has now been set up for outpatient wound care. He will get a walker and discharge today. <Zaria Heller - Last Filed: 01/18/18 14:21>
[2018-01-18] MEDS: Hydrochlorothiazide 25 MG TAB PO SCH (07:25)
[2018-01-18] MEDS: Aspirin 325 mg Enteric Coated Tablet PO SCH (07:25)
[2018-01-18] MEDS: Gabapentin 300 MG CAP PO SCH ×2 (07:26→14:21)
[2018-01-18] MEDS: Amoxicillin/Potassium Clav 875 MG TAB PO SCH (07:26)
[2018-01-18] MEDS: Lisinopril 2.5 MG TAB PO SCH (07:26)
[2018-01-18] MEDS: Senokot S 8.6-50 MG TAB PO SCH (07:27)
[2018-01-18] MEDS: metFORMIN 500 MG TAB PO SCH (07:27)
[2018-01-18] MEDS: Polyethylene Glycol 3350 17 GM Packet PO SCH (07:28)
[2018-01-18] MEDS: Carvedilol 6.25 MG TAB PO SCH (07:28)
[2018-01-18] MEDS: traMADol HCl 50 MG TAB PO PRN ×2 (07:35→14:21)
[2018-01-18] MEDS: Insulin Detemir 100 UNITS/ML 22 UNITS in Pre-Filled Syringe 1 EACH SC SCH (08:09)
[2018-01-18] MEDS: HumaLOG 300 UNITS/3 ML VIAL SC PRN (11:42)
[2018-01-18 12:05] VITALS: BP 146/92; TEMP 97.9
--- NOTE | 2018-01-19 04:56 | DIS-2 ---
DATE OF ADMISSION: 01/13/2018 DATE OF DISCHARGE: 01/18/2018 ADMITTING ATTENDING: Dr. Ramiro Zhao DISCHARGE ATTENDING: Dr. Zaria Heller RESIDENT: Dr. Nayla Ogden CONSULTATIONS 1. General Surgery, Dr. Erasmo Paz. 2. Wound Care. 3. Case Management. PROCEDURES: 1. Foot x-ray shows soft tissue swelling without underlying osseous abnormality. 2. Amputation of left small toe and metatarsal. The wound was left open for healing by secondary intention. A wound VAC was placed. PRIMARY DIAGNOSES: 1. 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 2. Diabetic foot ulcer. 3. Cellulitis of the left foot. SECONDARY DIAGNOSES: 1. Coronary artery disease status post coronary artery bypass graft. 2. Diabetes mellitus type 2. 3. Morbid obesity. 4. Tobacco use disorder. 5. Acute kidney injury. 6. Hypertension. DISCHARGE MEDICATIONS: 1. Augmentin 875 mg oral q.12 hours for a total of 14 days post-discharge. 2. Atorvastatin calcium 40 mg oral at bedtime. 3. Tramadol HCL 50 mg oral every 6 hours as needed for pain. 4. Levemir 25 units subcutaneous at bedtime. 5. Levemir 22 units subcutaneous q.a.m. 6. Metformin 1000 mg oral twice daily. 7. Glimepiride 4 mg oral twice daily. 8. Aspirin 325 mg oral daily. 9. Carvedilol 12.5 mg oral twice daily. 10. Lisinopril 2.5 mg oral daily. 11. Potassium chloride 20 mEq oral daily. 12. Amitriptyline HCL 100 mg oral at bedtime. 13. Hydrochlorothiazide 25 mg oral daily. 14. Vitamin D3 1000 units oral daily. 15. Gabapentin 300 mg oral 3 times daily. 16. Furosemide 40 mg oral daily. DISCONTINUED MEDICATIONS: 1. Clindamycin 150 mg oral twice daily. 2. Lantus 32 units subcutaneously daily was switched to Levemir 25 units in the p.m. and 22 units in the a.m. HISTORY OF PRESENT ILLNESS/HOSPITAL COURSE: This is a 62-year-old male that came in for evaluation of a diabetic foot ulcer. He was seen in clinic 1 week ago and started on clindamycin. The patient mentioned that he received a wound care referral, but was never called for an appointment. was changing the dressing and noted some purulent discharge, so she decided to take him to the emergency department for further evaluation. The patient does state that there was mild increase in typical neuropathic pain which he described as a shock, but denied any pain, otherwise. The patient denied any fever, chills, or sweats. He had noticed some redness in the leg, increasing over the last few days. In the emergency department, he was given magnesium, vancomycin, and Zosyn. A 3-view foot x-ray was performed which did not show any osseous abnormality. General Surgery was consulted. Dr. Paz performed an amputation of the left small toe and metatarsal. The wound was left open for healing by secondary intention and a wound VAC was placed. The pathology report on the surgical specimen was identified as osteomyelitis and gangrene. Wound cultures were obtained. The patient was continued on vancomycin and Zosyn until sensitivities of the wound culture resulted. The patient was noted to have a polymicrobial infection. Based on the sensitivities of the organisms identified the patient was switched to oral Augmentin, which is to be continued for 2 weeks or until the patient follows up with Dr. Paz and has his wound further evaluated. During the course of his hospital stay, the patient's pain seemed to be fairly well controlled. He was able to ambulate with minimal assistance and was discharged from physical therapy to the walking program. Prior to discharge, he was provided a walker for assistance. Of note, ESR was noted to be 83 and CRP was noted to be 7.59. The patient was noted to have an acute kidney injury upon presentation to the hospital, he was fluid resuscitated and his kidney injury improved. His BUN and creatinine improved back down to near baseline. The patient was recently started on Lantus 32 units as an outpatient for diabetes. He says he started that a little less than a week ago. His blood sugars on admission were in the upper 300s indicating poor control. He was started on Levemir twice a day, that was titrated according to the sliding scale he was requiring while hospitalized. Eventually that was titrated to 22 units a.m. and 25 units p.m. and his blood sugars remained fairly well controlled in the mid 100-200 range. The patient requested that he continue Levemir as an outpatient since it seemed to be working for him while he was in the hospital. DISPOSITION: Stable. DISCHARGE INSTRUCTIONS: 1. Location: Home. 2. Diet: Heart healthy and consistent carbohydrates diet. 3. Activity: Orthopedic limitations to include weightbearing as tolerated on the left foot, status post amputation. 4. Followup: The patient is to follow up with his primary care physician, Dr. Degroot within 7 days of discharge from the hospital to ensure that primary care physician has a chance to evaluate the patient post-discharge. Additionally, the patient has a follow up with Dr. Paz in 2-3 weeks from discharge to have the wound further evaluated. He is scheduled with outpatient wound care to have his wound VAC changed and he is to follow with those appointments as scheduled. This was all discussed with patient at length and he was in understanding of the plan and agreeable. SILAS
== END 2018-01-18 16:19 | disposition home health service (06) | DRG 240 ==
LOC: ERS 21:28 → T4-A 01-13 01:31
PROVIDERS: ADMIT Family Medicine; ATTEND Family Medicine
PROC: 0Y6N0ZF Detachment at Left Foot, Partial 5th Ray, Open Approach (ICD-10-PCS; principal; 2018-01-13)
DX: E11.52 Type 2 diabetes mellitus with diabetic peripheral angiopathy with gangrene (principal); N17.9 Acute kidney failure, unspecified; E11.40 Type 2 diabetes mellitus with diabetic neuropathy, unspecified; E11.621 Type 2 diabetes mellitus with foot ulcer; M86.8X7 Other osteomyelitis, ankle and foot; E66.01 Morbid (severe) obesity due to excess calories; L03.116 Cellulitis of left lower limb; Z68.41 Body mass index [BMI] 40.0-44.9, adult; L97.529 Non-pressure chronic ulcer of other part of left foot with unspecified severity; E11.69 Type 2 diabetes mellitus with other specified complication; I25.10 Atherosclerotic heart disease of native coronary artery without angina pectoris; Z95.1 Presence of aortocoronary bypass graft; F17.210 Nicotine dependence, cigarettes, uncomplicated; E11.628 Type 2 diabetes mellitus with other skin complications; Z79.4 Long term (current) use of insulin; K59.00 Constipation, unspecified; R60.0 Localized edema; I10 Essential (primary) hypertension
CPT/HCPCS: 36415; 36416; 80048; 80053; 80202; 83036; 85025; 85652; 86140; 87070; 87076; 87077; 87186; 87205; 88305; 88311; 93005; 93010; 96365; 96375; A4216; G8978-GP-CJ; G8979-GP-CJ; G8980-GP-CJ; J1650; J1815; J2001; J2250; J2270; J2405; J2543; J2704; J3010; J3370; J7050

== ENCOUNTER 2018-01-19 08:35 | Outpatient (CLI) | payer SELFPAY ==
[2018-01-19] MEDS ORDERED: Sodium Chloride 0.9% 15 ML NEB ONE (09:00)
== END 2018-01-19 08:36 | disposition home or self-care (01) ==
LOC: WCC 08:35
PROVIDERS: ATTEND Family Medicine
DX: T81.89XD Other complications of procedures, not elsewhere classified, subsequent encounter (principal); Z89.422 Acquired absence of other left toe(s); Z91.013 Allergy to seafood; Z88.5 Allergy status to narcotic agent
CPT/HCPCS: 97602; A4218

== ENCOUNTER 2018-02-12 20:12 | Emergency (ER) | payer BC ==
--- NOTE | 2018-02-12 21:43 | RAD ---
LEFT TOE THREE VIEWS: HISTORY: A 62-year-old female with a history of a left toe amputation three weeks ago. Foul odor from dressin g. FINDINGS: Recent post amputation of the right fifth digit. There is some anterior foot soft tissue swelling. No evidence for new bony erosive or destructive changes. IMPRESSION: Status post amputation changes of the fifth digit, at the level of the mid metatarsal. No evidence f or other bony erosive or destructive changes. POS: LIVIA
[2018-02-12 21:47] LABS: #Basophils 0.1 thou/uL (0.0-0.2); #Eosinphils 0.2 thou/uL (0.0-0.7); #Lymphocytes 1.5 thou/uL (1.20-3.40); #Monocytes 0.6 thou/uL (0.11-0.59); #Neutrophils 4.6 thou/uL (1.40-6.50); %Eosinophils 3.1 % (0.0-10.0); %Lymphocytes 21.1 % (21.0-51.0); %Monocytes 8.7 % (0.0-10.0); Hemoglobin 10.7 g/dL (14.0-18.0); Mean Corpuscular HGB CONC 34.6 g/dL (32.0-36.0); Mean Corpuscular Hemoglobin 30.2 pg (27.0-31.0); Mean Corpuscular Volume 87.4 fl (80.0-94.0); Mean Platelet Volume 7.3 fL (7.4-10.4); Platelet Count 144 thou/uL (130-400); RBC Distribution Width 14.2 % (11.5-14.5); Red Blood Cell (RBC) Count 3.55 mill/uL (4.70-6.10); White Blood Cell (WBC) Count 6.9 thou/uL (4.8-10.8)
[2018-02-12] MEDS ORDERED: Ampicillin/Sulbactam 3 GM in Sodium Chloride 0.9% 100 ML IVPB SCH (22:00)
[2018-02-12 22:09] LABS: Anion Gap 16 mmol/L (10-20); BUN (Urea Nitrogen) 19 mg/dL (8.4-25.7); Calc. Creatinine Clearance 0 mL/min (70-130); Calcium 9.8 mg/dL (7.8-10.44); Carbon Dioxide 24 mmol/L (22-29); Chloride 97 mmol/L (98-107); Estimated GFR-MDRD 54; Glucose 336 mg/dL (70-105); Potassium 4.1 mmol/L (3.5-5.1); Sodium 133 mmol/L (136-145)
[2018-02-12] MEDS ORDERED: Sucralfate 1 GM/10 ML UDCUP ONE (23:12)
== END 2018-02-13 00:11 | disposition short-term general hospital (02) ==
LOC: ERS 20:12
DX: E11.621 Type 2 diabetes mellitus with foot ulcer (principal); E78.5 Hyperlipidemia, unspecified; I25.2 Old myocardial infarction; Z87.891 Personal history of nicotine dependence; Z79.899 Other long term (current) drug therapy; Z79.82 Long term (current) use of aspirin; Z79.4 Long term (current) use of insulin
CPT/HCPCS: 80048; 85025; 85652; 86140; 96365; 96367; J0295; J3370; J7050

== ENCOUNTER 2019-06-12 11:46 | Outpatient (CLI) | payer OTHER ==
--- NOTE | 2019-06-12 14:03 | RAD ---
LEFT KNEE 2 VIEWS: HISTORY: Disability exam, left knee pain. FINDINGS/IMPRESSION: Mild degenerative changes are present. No fracture, dislocation, or bony destruction is identified. Vascular calcifications are noted. POS: SHANIAH
--- NOTE | 2019-06-12 14:04 | RAD ---
AP PELVIS: HISTORY: Disability exam, hip pain. FINDINGS/IMPRESSION: Degenerative changes are seen in the hip joints bilaterally. No fracture, dislocation, or bony destr uction is identified. POS: LIVIA
--- NOTE | 2019-06-12 14:05 | RAD ---
LEFT HIP 2 VIEWS: Date: 06/12/19 HISTORY: Disability exam. Left hip pain. FINDINGS/IMPRESSION: Mild degenerative changes are present. No fracture, dislocation, or bony destruction is identified. T here are vascular calcifications. POS: LIVIA
--- NOTE | 2019-06-12 14:05 | RAD ---
RIGHT HIP 2 VIEWS: HISTORY: Right hip pain. Disability exam. FINDINGS/IMPRESSION: Mild degenerative changes are present. No fracture, dislocation, or bony destruction id identified. There are vascular calcifications. POS: SHANIAH
--- NOTE | 2019-06-12 14:08 | RAD ---
LUMBAR SPINE 2 VIEWS: HISTORY: Disability exam, back pain. FINDINGS/IMPRESSION: Multilevel degenerative changes are present. No fracture, subluxation, or bony destruction is identi fied. There are vascular calcifications. POS: LIVIA
== END 2019-06-12 11:47 | disposition home or self-care (01) ==
LOC: BICRAD 11:46
PROVIDERS: ATTEND Internal Medicine
DX: Z02.71 Encounter for disability determination (principal); M47.816 Spondylosis without myelopathy or radiculopathy, lumbar region; M16.0 Bilateral primary osteoarthritis of hip; I99.8 Other disorder of circulatory system
CPT/HCPCS: 72100; 72170

== ENCOUNTER 2021-05-28 03:03 | Emergency (ER) | payer BC, OTHER, SELFPAY | END 2021-05-28 09:54 | disposition home or self-care (01) | LOC: ERS 03:03 | DX: S70.02XA Contusion of left hip, initial encounter (principal); E78.5 Hyperlipidemia, unspecified; E78.00 Pure hypercholesterolemia, unspecified; I25.2 Old myocardial infarction; E11.40 Type 2 diabetes mellitus with diabetic neuropathy, unspecified; F17.210 Nicotine dependence, cigarettes, uncomplicated; W19.XXXA Unspecified fall, initial encounter | CPT/HCPCS: 72192; 93005 ==

== ENCOUNTER 2021-05-29 20:57 | Emergency (ER) | payer OTHER, SELFPAY ==
[2021-05-29 21:34] LABS: #Basophils 0.1 thou/uL (0.0-0.2); #Eosinphils 0.2 thou/uL (0.0-0.7); #Lymphocytes 1.3 thou/uL (1.20-3.40); #Monocytes 0.6 thou/uL (0.11-0.59); #Neutrophils 5.7 thou/uL (1.40-6.50); %Basophils 0.6 % (0.0-1.0); %Eosinophils 2.2 % (0.0-10.0); %Lymphocytes 16.2 % (21.0-51.0); %Monocytes 7.6 % (0.0-10.0); %Neutrophils 73.4 % (42.0-75.0); Hemoglobin 13.8 g/dL (14.0-18.0); Mean Corpuscular HGB CONC 35.1 g/dL (32.0-36.0); Mean Corpuscular Hemoglobin 30.4 pg (27.0-31.0); Mean Corpuscular Volume 86.7 fL (78.0-98.0); Mean Platelet Volume 7.3 fL (7.4-10.4); Platelet Count 152 thou/uL (130-400); RBC Distribution Width 15.1 % (11.5-14.5); Red Blood Cell (RBC) Count 4.54 mill/uL (4.70-6.10); White Blood Cell (WBC) Count 7.7 thou/uL (4.8-10.8)
[2021-05-29 21:57] LABS: ALT (SGPT) 24 U/L (8-55); AST (SGOT) 23 U/L (5-34); Albumin 3.8 g/dL (3.4-4.8); Alkaline Phosphatase 110 U/L (40-110); Anion Gap 15 mmol/L (10-20); BUN (Urea Nitrogen) 24 mg/dL (8.4-25.7); Bilirubin, Total 0.6 mg/dL (0.2-1.2); CK (CPK) 78 U/L (30-200); Calc. Creatinine Clearance 0 mL/min (70-130); Carbon Dioxide 27 mmol/L (23-31); Chloride 100 mmol/L (98-107); Globulin 3.9 g/dL (2.4-3.5); Glucose 279 mg/dL (80-115); Magnesium 1.9 mg/dL (1.6-2.6); Potassium 4.7 mmol/L (3.5-5.1); Protein, Total 7.7 g/dL (5.8-8.1); Sodium 137 mmol/L (136-145)
== END 2021-05-30 00:58 | disposition home or self-care (01) ==
LOC: ERS 20:57
DX: R53.1 Weakness (principal); E78.5 Hyperlipidemia, unspecified; I25.2 Old myocardial infarction; E11.9 Type 2 diabetes mellitus without complications; F17.210 Nicotine dependence, cigarettes, uncomplicated
CPT/HCPCS: 70450; 72131; 80053; 82550; 83735; 85025; 93005

== ENCOUNTER 2021-08-21 15:28 | Inpatient (IN) | payer OTHER ==
[~2021-08-21 15:28] MED LIST: Iopamidol-370 76% 500 ML 1 ML ONE
[2021-08-21] MEDS ORDERED: Heparin 10,000 UNITS/ 10 ML VIAL ONE (16:00)
[2021-08-21] MEDS ORDERED: Lidocaine 1% (PF) 30 ML VIAL ONE (16:09)
[2021-08-21 16:21] LABS: #Basophils 0.1 thou/uL (0.0-0.2); #Eosinphils 0.1 thou/uL (0.0-0.7); #Lymphocytes 1.4 thou/uL (1.20-3.40); #Monocytes 0.5 thou/uL (0.11-0.59); %Basophils 0.7 % (0.0-1.0); %Eosinophils 1.6 % (0.0-10.0); %Lymphocytes 14.8 % (21.0-51.0); %Monocytes 5.9 % (0.0-10.0); %Neutrophils 77.1 % (42.0-75.0); Hemoglobin 12.7 g/dL (14.0-18.0); Mean Corpuscular HGB CONC 33.9 g/dL (32.0-36.0); Mean Corpuscular Hemoglobin 29.9 pg (27.0-31.0); Mean Corpuscular Volume 88.2 fL (78.0-98.0); Mean Platelet Volume 7.1 fL (7.4-10.4); Platelet Count 169 thou/uL (130-400); Red Blood Cell (RBC) Count 4.26 mill/uL (4.70-6.10); White Blood Cell (WBC) Count 9.1 thou/uL (4.8-10.8)
[2021-08-21 16:42] LABS: ALT (SGPT) 13 U/L (8-55); AST (SGOT) 13 U/L (5-34); Acetaminophen Less than 6.0 mcg/mL (10.0-30.0); Albumin 3.6 g/dL (3.4-4.8); Alcohol Less than 10 mg/dL (Less than 10); Alkaline Phosphatase 105 U/L (40-110); Anion Gap 13 mmol/L (10-20); BUN (Urea Nitrogen) 22 mg/dL (8.4-25.7); Bilirubin, Total 0.4 mg/dL (0.2-1.2); CK (CPK) 85 U/L (30-200); Calc. Creatinine Clearance 0 mL/min (70-130); Calcium 9.9 mg/dL (7.8-10.44); Carbon Dioxide 30 mmol/L (23-31); Chloride 98 mmol/L (98-107); Globulin 3.7 g/dL (2.4-3.5); Glucose 191 mg/dL (80-115); Potassium 4.5 mmol/L (3.5-5.1); Protein, Total 7.3 g/dL (5.8-8.1); Salicylate Less than 8.0 mg/dL (15.0-30.0); Sodium 136 mmol/L (136-145)
[2021-08-21] MEDS ORDERED: Azithromycin 500 MG VIAL ONE (16:50)
[2021-08-21 17:02] LABS: CKMB 5.3 ng/mL (0-6.6)
[2021-08-21 18:19] LABS: INR-International Normal Ratio 0.9; PTT 34.4 sec (22.9-36.1); Prothrombin Time 12.6 sec (12.0-14.7)
[2021-08-21] MEDS ORDERED: Sodium Chloride 0.9% 1,000 ML IV SCH (18:30)
[2021-08-21] MEDS ORDERED: Cefepime 2 GM in Sodium Chloride 0.9% 100 ML IVPB SCH (18:30)
[2021-08-21] MEDS ORDERED: Heparin 25,000 units/D5W 500 ML IV SCH (18:30)
[2021-08-21 19:56] VITALS: BMI 41.1
[2021-08-21] MEDS ORDERED: Ondansetron ODT 4 MG TAB PO PRN (20:09)
[2021-08-21] MEDS ORDERED: Dextrose 5% in Water 1,000 ML IV PRN (20:12)
[2021-08-21] MEDS ORDERED: HumaLOG 300 UNITS/3 ML VIAL SC PRN (20:12)
[2021-08-21] MEDS ORDERED: Dextrose 50% Abboject 50 ML SYRINGE SLOW IVP PRN (20:12)
[2021-08-21] MEDS ORDERED: Acetaminophen 325 MG TAB PO PRN (20:15)
[2021-08-21] MEDS ORDERED: Ondansetron PF 4 MG/2 ML Vial IVP PRN (20:15)
[2021-08-21] MEDS ORDERED: Ondansetron ODT 4 MG TAB SL PRN (20:15)
[2021-08-21 21:01] LABS: Critical Call Chem Troponin I RESULT DECREASING; Troponin I 0.511 ng/mL (< 0.028)
[2021-08-21] MEDS ORDERED: methylPREDNISolone Sod Succ 40 MG VIAL IVP SCH (21:15)
[2021-08-21 21:58] LABS: SARS-CoV-2 NAA Rapid Test Not Detected (NotDetected)
[2021-08-21] MEDS: methylPREDNISolone Sod Succ 40 MG VIAL IVP SCH (22:14)
[2021-08-21 23:31] LABS: Critical Call Chem Troponin I RESULT DECREASING; Troponin I 0.468 ng/mL (< 0.028)
[2021-08-21] MEDS: Heparin 10,000 UNITS/ 10 ML VIAL SLOW IVP SCH (23:54)
[2021-08-22 05:34] LABS: #Lymphocytes 0.5 thou/uL (1.20-3.40); #Monocytes 0.1 thou/uL (0.11-0.59); #Neutrophils 7.6 thou/uL (1.40-6.50); %Basophils 0.3 % (0.0-1.0); %Eosinophils 0.5 % (0.0-10.0); %Monocytes 1.2 % (0.0-10.0); Hemoglobin 11.7 g/dL (14.0-18.0); Mean Corpuscular HGB CONC 33.3 g/dL (32.0-36.0); Mean Corpuscular Hemoglobin 29.3 pg (27.0-31.0); Mean Corpuscular Volume 87.9 fL (78.0-98.0); Mean Platelet Volume 7.2 fL (7.4-10.4); Platelet Count 142 thou/uL (130-400); RBC Distribution Width 13.8 % (11.5-14.5); Red Blood Cell (RBC) Count 3.98 mill/uL (4.70-6.10); White Blood Cell (WBC) Count 8.3 thou/uL (4.8-10.8)
[2021-08-22 05:55] LABS: Anion Gap 14 mmol/L (10-20); BUN (Urea Nitrogen) 22 mg/dL (8.4-25.7); Calc. Creatinine Clearance 111 mL/min (70-130); Calcium 9.1 mg/dL (7.8-10.44); Carbon Dioxide 23 mmol/L (23-31); Chloride 101 mmol/L (98-107); Glucose 245 mg/dL (80-115); Potassium 4.7 mmol/L (3.5-5.1); Sodium 133 mmol/L (136-145)
[2021-08-22] MEDS: Heparin 10,000 UNITS/ 10 ML VIAL SLOW IVP SCH ×2 (06:04→20:06)
[2021-08-22] MEDS: HumaLOG 300 UNITS/3 ML VIAL SC PRN ×3 (06:32→18:00)
[2021-08-22] MEDS: cefTRIAXone\\ROCEPHIN 1 GM in Sodium Chloride 0.9% 100 ML IVPB SCH (07:53)
[2021-08-22] MEDS: methylPREDNISolone Sod Succ 40 MG VIAL IVP SCH (09:35)
[2021-08-22 17:19] LABS: PTT 31.5 sec (22.9-36.1); Prothrombin Time 13.1 sec (12.0-14.7)
[2021-08-22] MEDS: Heparin 25,000 units/D5W 500 ML IV SCH (19:43)
[2021-08-22] MEDS ORDERED: HumaLOG 300 UNITS/3 ML VIAL SC PRN (20:30)
[2021-08-22] MEDS: Famotidine 20 MG TAB PO SCH (21:20)
[2021-08-22] MEDS: Atorvastatin Calcium 40 MG TAB PO SCH (21:21)
[2021-08-22] MEDS: Lantus 1000 UNITS/10 ML VIAL SC SCH (22:00)
[2021-08-22] MEDS: Mometasone 200 MCG/Formoterol 5 MCG 120 PUFF INHALER INH SCH (22:39)
[2021-08-23] MEDS ORDERED: Benzonatate 100 MG CAP PO PRN (02:01)
[2021-08-23 02:38] LABS: Critical Call Chem Troponin I RESULT DECREASING; Troponin I 0.357 ng/mL (< 0.028)
[2021-08-23 02:49] LABS: Anion Gap 14 mmol/L (10-20); BUN (Urea Nitrogen) 26 mg/dL (8.4-25.7); Calc. Creatinine Clearance 108 mL/min (70-130); Calcium 9.4 mg/dL (7.8-10.44); Carbon Dioxide 21 mmol/L (23-31); Chloride 102 mmol/L (98-107); Glucose 231 mg/dL (80-115); Potassium 4.2 mmol/L (3.5-5.1); Sodium 133 mmol/L (136-145)
[2021-08-23] MEDS: Heparin 10,000 UNITS/ 10 ML VIAL SLOW IVP SCH ×2 (03:53→09:35)
[2021-08-23] MEDS: Levothyroxine Sodium 50 MCG TAB PO SCH (06:16)
[2021-08-23] MEDS: cefTRIAXone\\ROCEPHIN 1 GM in Sodium Chloride 0.9% 100 ML IVPB SCH (06:19)
[2021-08-23] MEDS: Mometasone 200 MCG/Formoterol 5 MCG 120 PUFF INHALER INH SCH ×2 (06:55→19:19)
[2021-08-23] MEDS: Glimepiride 4 MG TAB PO SCH (07:17)
[2021-08-23] MEDS: Lisinopril 2.5 MG TAB PO SCH (08:41)
[2021-08-23] MEDS: Aspirin 81 mg Enteric Coated Tablet PO SCH (08:41)
[2021-08-23] MEDS: Gabapentin 300 MG CAP PO SCH (08:42)
[2021-08-23] MEDS: Hydrochlorothiazide 25 MG TAB PO SCH (08:42)
[2021-08-23] MEDS: Famotidine 20 MG TAB PO SCH ×2 (08:42→20:10)
[2021-08-23] MEDS: Potassium Chloride 20 MEQ TAB PO SCH (08:44)
[2021-08-23] MEDS: methylPREDNISolone Sod Succ 40 MG VIAL IVP SCH (08:44)
[2021-08-23] MEDS: Lantus 1000 UNITS/10 ML VIAL SC SCH ×2 (08:45→21:48)
[2021-08-23] MEDS ORDERED: Lisinopril 2.5 MG TAB PO SCH (09:00)
[2021-08-23] MEDS: Heparin 25,000 units/D5W 500 ML IV SCH (09:36)
[2021-08-23] MEDS: HumaLOG 300 UNITS/3 ML VIAL SC PRN (17:01)
[2021-08-23] MEDS: Sucralfate 1 GM TAB PO SCH ×2 (17:45→20:10)
[2021-08-23] MEDS: Atorvastatin Calcium 40 MG TAB PO SCH (20:11)
[2021-08-24] MEDS: Levothyroxine Sodium 50 MCG TAB PO SCH (05:54)
[2021-08-24] MEDS: cefTRIAXone\\ROCEPHIN 1 GM in Sodium Chloride 0.9% 100 ML IVPB SCH (05:55)
[2021-08-24 06:04] LABS: Anion Gap 13 mmol/L (10-20); BUN (Urea Nitrogen) 29 mg/dL (8.4-25.7); Calc. Creatinine Clearance 105 mL/min (70-130); Calcium 9.4 mg/dL (7.8-10.44); Carbon Dioxide 28 mmol/L (23-31); Chloride 101 mmol/L (98-107); Glucose 227 mg/dL (80-115); Potassium 4.5 mmol/L (3.5-5.1)
[2021-08-24 06:12] LABS: Sodium 137 mmol/L (136-145)
[2021-08-24] MEDS: HumaLOG 300 UNITS/3 ML VIAL SC PRN (06:38)
[2021-08-24] MEDS: Mometasone 200 MCG/Formoterol 5 MCG 120 PUFF INHALER INH SCH (07:17)
[2021-08-24] MEDS: Lantus 1000 UNITS/10 ML VIAL SC SCH (08:57)
[2021-08-24] MEDS: Sucralfate 1 GM TAB PO SCH ×2 (09:00→12:38)
[2021-08-24] MEDS: Gabapentin 300 MG CAP PO SCH (09:00)
[2021-08-24] MEDS: Aspirin 81 mg Enteric Coated Tablet PO SCH (09:00)
[2021-08-24] MEDS ORDERED: Bupropion 150 MG XL TAB PO SCH (09:00)
[2021-08-24] MEDS: Lisinopril 2.5 MG TAB PO SCH (09:00)
[2021-08-24] MEDS: Famotidine 20 MG TAB PO SCH (09:00)
[2021-08-24] MEDS: Hydrochlorothiazide 25 MG TAB PO SCH (09:00)
[2021-08-24] MEDS: Glimepiride 4 MG TAB PO SCH (09:00)
[2021-08-24] MEDS: Potassium Chloride 20 MEQ TAB PO SCH (09:00)
[2021-08-24] MEDS: methylPREDNISolone Sod Succ 40 MG VIAL IVP SCH (09:06)
[2021-08-24 11:52] VITALS: BP 123/75; TEMP 98.6
== END 2021-08-24 12:45 | disposition home or self-care (01) | DRG 190 ==
LOC: ERS 15:28 → CCU 17:20 → NEURO 08-22 18:47
PROVIDERS: ADMIT Internal Medicine; ATTEND Family Medicine
DX: J44.1 Chronic obstructive pulmonary disease with (acute) exacerbation (principal); I21.A1 Myocardial infarction type 2; N17.9 Acute kidney failure, unspecified; Z68.41 Body mass index [BMI] 40.0-44.9, adult; Z20.822 Contact with and (suspected) exposure to COVID-19; I25.10 Atherosclerotic heart disease of native coronary artery without angina pectoris; F17.210 Nicotine dependence, cigarettes, uncomplicated; E78.5 Hyperlipidemia, unspecified; E66.01 Morbid (severe) obesity due to excess calories; E11.22 Type 2 diabetes mellitus with diabetic chronic kidney disease; N18.30 Chronic kidney disease, stage 3 unspecified; Z95.1 Presence of aortocoronary bypass graft; Z88.5 Allergy status to narcotic agent; Z91.013 Allergy to seafood; Z79.82 Long term (current) use of aspirin; Z79.4 Long term (current) use of insulin; Z90.49 Acquired absence of other specified parts of digestive tract; Z71.6 Tobacco abuse counseling
CPT/HCPCS: 36415; 36416; 71045; 71275; 80048; 80307; 82550; 82553; 83880; 84484; 85025; 85379; 85610; 85730; 93005; 94640; 94760; J0456; J0692; J0696; J1644; J1815; J2001; J2920; J3490; J7620; Q9967; U0002

== ENCOUNTER 2021-09-08 13:21 | Observation (INO) | payer OTHER ==
[2021-09-08 14:40] LABS: Hemoglobin 10.9 g/dL (14.0-18.0); Mean Corpuscular Hemoglobin 28.7 pg (27.0-31.0); Mean Platelet Volume 7.1 fL (7.4-10.4); Platelet Count 143 thou/uL (130-400); RBC Distribution Width 14.2 % (11.5-14.5); White Blood Cell (WBC) Count 8.2 thou/uL (4.8-10.8)
[2021-09-08 15:04] LABS: Lymphocytes 17 % (21-51); MDiff Complete? YES; Monocytes 4 % (0-10); Neutrophil 79 % (42-75); Platelet Morphology Comment Appears Adequate; Polychromasia SLIGHT = 2-3 cells (100X) (0-2/hpf)
[2021-09-08 15:19] LABS: ALT (SGPT) 21 U/L (8-55); AST (SGOT) 17 U/L (5-34); Albumin 3.2 g/dL (3.4-4.8); Alkaline Phosphatase 97 U/L (40-110); Anion Gap 13 mmol/L (10-20); BUN (Urea Nitrogen) 23 mg/dL (8.4-25.7); Bilirubin, Total 0.7 mg/dL (0.2-1.2); Calc. Creatinine Clearance 0 mL/min (70-130); Calcium 9.2 mg/dL (7.8-10.44); Carbon Dioxide 19 mmol/L (23-31); Chloride 106 mmol/L (98-107); Globulin 3.7 g/dL (2.4-3.5); Glucose 230 mg/dL (80-115); Potassium 4.7 mmol/L (3.5-5.1); Protein, Total 6.9 g/dL (5.8-8.1); Sodium 133 mmol/L (136-145)
[2021-09-08] MEDS ORDERED: Furosemide 40 MG/4 ML VIAL ONE ×2 (15:28→20:33)
[2021-09-08] MEDS ORDERED: Acetaminophen 325 MG TAB ONE (15:28)
[2021-09-08 15:32] LABS: CKMB 2.7 ng/mL (0-6.6)
[2021-09-08] MEDS ORDERED: Albuterol 200 PUFF (6.7GM INHALER) ONE (15:35)
[2021-09-08] MEDS ORDERED: Dextrose 50% Abboject 50 ML SYRINGE SLOW IVP PRN (17:43)
[2021-09-08] MEDS ORDERED: Dextrose 5% in Water 1,000 ML IV PRN (17:43)
[2021-09-08 18:19] LABS: Cardiac Risk 3.1 (Less than 4.5)
[2021-09-08] MEDS ORDERED: Enoxaparin Sodium 40 MG/0.4 ML SYRINGE SC SCH (18:30)
[2021-09-08 18:54] LABS: Hemoglobin A1c 9.4 % (4.0-6.0)
[2021-09-08 19:11] LABS: Troponin I 0.125 ng/mL (< 0.028)
[2021-09-08] MEDS ORDERED: Enoxaparin Sodium 40 MG/0.4 ML SYRINGE ONE (19:35)
[2021-09-08] MEDS ORDERED: Furosemide 40 MG/4 ML VIAL SLOW IVP SCH (20:15)
[2021-09-08 21:55] LABS: Troponin I 0.122 ng/mL (< 0.028)
[2021-09-08] MEDS ORDERED: HumaLOG 300 UNITS/3 ML VIAL SC PRN (22:31)
[2021-09-08] MEDS ORDERED: Albuterol 200 PUFF (6.7GM INHALER) INH PRN (22:36)
[2021-09-09 05:50] LABS: #Eosinphils 0.1 thou/uL (0.0-0.7); #Lymphocytes 1.3 thou/uL (1.20-3.40); #Monocytes 0.5 thou/uL (0.11-0.59); #Neutrophils 5.2 thou/uL (1.40-6.50); %Basophils 0.6 % (0.0-1.0); %Eosinophils 1.2 % (0.0-10.0); %Lymphocytes 18.5 % (21.0-51.0); %Monocytes 6.8 % (0.0-10.0); %Neutrophils 72.9 % (42.0-75.0); Hemoglobin 11.3 g/dL (14.0-18.0); Mean Corpuscular HGB CONC 33.2 g/dL (32.0-36.0); Mean Corpuscular Hemoglobin 29.2 pg (27.0-31.0); Mean Corpuscular Volume 87.9 fL (78.0-98.0); Mean Platelet Volume 6.7 fL (7.4-10.4); Platelet Count 149 thou/uL (130-400); RBC Distribution Width 14.3 % (11.5-14.5); Red Blood Cell (RBC) Count 3.87 mill/uL (4.70-6.10); White Blood Cell (WBC) Count 7.1 thou/uL (4.8-10.8)
[2021-09-09] MEDS ORDERED: Furosemide 40 MG/4 ML VIAL ONE (06:08)
[2021-09-09 06:15] LABS: Anion Gap 14 mmol/L (10-20); BUN (Urea Nitrogen) 24 mg/dL (8.4-25.7); Calc. Creatinine Clearance 0 mL/min (70-130); Calcium 9.5 mg/dL (7.8-10.44); Carbon Dioxide 24 mmol/L (23-31); Chloride 103 mmol/L (98-107); Glucose 166 mg/dL (80-115); Potassium 4.2 mmol/L (3.5-5.1); Sodium 137 mmol/L (136-145)
[2021-09-09] MEDS: Furosemide 40 MG/4 ML VIAL SLOW IVP SCH ×2 (06:19→14:37)
[2021-09-09] MEDS: Mometasone 100 MCG/Formoterol 5 MCG 120 PUFF INHALER INH SCH ×2 (07:47→18:20)
[2021-09-09] MEDS ORDERED: Aspirin Chewable 81 MG TAB PO SCH (09:00)
[2021-09-09] MEDS ORDERED: Enoxaparin Sodium 40 MG/0.4 ML SYRINGE SC SCH (09:39)
[2021-09-09] MEDS: Levothyroxine Sodium 50 MCG TAB PO SCH (10:06)
[2021-09-09] MEDS: Glimepiride 4 MG TAB PO SCH (10:09)
[2021-09-09] MEDS: Sucralfate 1 GM TAB PO SCH ×4 (10:11→21:32)
[2021-09-09] MEDS: Bupropion 150 MG XL TAB PO SCH (10:11)
[2021-09-09] MEDS: Gabapentin 300 MG CAP PO SCH ×2 (10:12→21:31)
[2021-09-09] MEDS: Lisinopril 2.5 MG TAB PO SCH (10:13)
[2021-09-09] MEDS: Lantus 1000 UNITS/10 ML VIAL SC SCH (10:14)
[2021-09-09] MEDS ORDERED: Enoxaparin Sodium 40 MG/0.4 ML SYRINGE ONE (10:18)
[2021-09-09] MEDS ORDERED: Aspirin Chewable 81 MG TAB ONE (10:18)
[2021-09-09] MEDS: Aspirin 81 mg Enteric Coated Tablet PO SCH (10:20)
[2021-09-09 12:02] VITALS: BMI 40.6
[2021-09-09 14:00] LABS: SARS-CoV-2 PCR by NAA Not Detected (NotDetected)
[2021-09-09] MEDS ORDERED: Nicotine 14 MG PATCH TD SCH (16:00)
[2021-09-09] MEDS ORDERED: Amitriptyline HCl 100 MG TAB PO SCH (21:00)
[2021-09-09] MEDS ORDERED: Atorvastatin Calcium 40 MG TAB PO SCH (21:00)
[2021-09-10 05:42] LABS: #Eosinphils 0.1 thou/uL (0.0-0.7); #Lymphocytes 0.8 thou/uL (1.20-3.40); #Monocytes 0.6 thou/uL (0.11-0.59); #Neutrophils 7.4 thou/uL (1.40-6.50); %Basophils 0.4 % (0.0-1.0); %Eosinophils 1.1 % (0.0-10.0); %Lymphocytes 8.6 % (21.0-51.0); %Monocytes 6.7 % (0.0-10.0); %Neutrophils 83.2 % (42.0-75.0); Hemoglobin 11.7 g/dL (14.0-18.0); Mean Corpuscular HGB CONC 33.3 g/dL (32.0-36.0); Mean Corpuscular Hemoglobin 29.1 pg (27.0-31.0); Mean Corpuscular Volume 87.4 fL (78.0-98.0); Mean Platelet Volume 6.7 fL (7.4-10.4); Platelet Count 174 thou/uL (130-400); RBC Distribution Width 14.3 % (11.5-14.5); Red Blood Cell (RBC) Count 4.02 mill/uL (4.70-6.10); White Blood Cell (WBC) Count 8.9 thou/uL (4.8-10.8)
[2021-09-10] MEDS: Furosemide 40 MG/4 ML VIAL SLOW IVP SCH ×2 (05:42→16:02)
[2021-09-10] MEDS: Levothyroxine Sodium 50 MCG TAB PO SCH (05:42)
[2021-09-10 06:11] LABS: Anion Gap 14 mmol/L (10-20); BUN (Urea Nitrogen) 24 mg/dL (8.4-25.7); Calc. Creatinine Clearance 114 mL/min (70-130); Calcium 9.4 mg/dL (7.8-10.44); Carbon Dioxide 25 mmol/L (23-31); Chloride 101 mmol/L (98-107); Potassium 3.8 mmol/L (3.5-5.1); Sodium 136 mmol/L (136-145)
[2021-09-10 06:17] LABS: Glucose 57 mg/dL (80-115)
[2021-09-10] MEDS: Mometasone 100 MCG/Formoterol 5 MCG 120 PUFF INHALER INH SCH (07:19)
[2021-09-10] MEDS ORDERED: Benzonatate 100 MG CAP PO PRN (08:31)
[2021-09-10] MEDS ORDERED: Nicotine 14 MG PATCH TD SCH (08:34)
[2021-09-10] MEDS ORDERED: Enoxaparin Sodium 40 MG/0.4 ML SYRINGE SC SCH (09:00)
[2021-09-10] MEDS: Gabapentin 300 MG CAP PO SCH (09:56)
[2021-09-10] MEDS: Sucralfate 1 GM TAB PO SCH ×3 (09:57→17:18)
[2021-09-10] MEDS: Glimepiride 4 MG TAB PO SCH (09:57)
[2021-09-10] MEDS: Aspirin 81 mg Enteric Coated Tablet PO SCH (09:58)
[2021-09-10] MEDS: Lisinopril 2.5 MG TAB PO SCH ×2 (09:58→11:27)
[2021-09-10] MEDS: Bupropion 150 MG XL TAB PO SCH (09:58)
[2021-09-10 11:51] VITALS: TEMP 97.8
[2021-09-10] MEDS: Lantus 1000 UNITS/10 ML VIAL SC SCH (13:24)
[2021-09-10] MEDS ORDERED: Furosemide 40 MG TAB PO SCH (15:15)
[2021-09-10] MEDS ORDERED: Nicotine 21 MG PATCH TD SCH (16:00)
[2021-09-10 16:20] VITALS: BP 126/62
[2021-09-11] MEDS ORDERED: Furosemide 40 MG TAB PO SCH (09:00)
[2021-09-15] MEDS ORDERED: Ergocalciferol 1.25 MG(50,000 UNITS) CAP PO SCH (09:00)
== END 2021-09-10 17:42 | disposition home or self-care (01) ==
LOC: ERS 13:21 → ERHOLD 17:07 → 2SW 09-09 11:43
PROVIDERS: ADMIT Family Medicine; ATTEND Family Medicine
DX: I13.0 Hypertensive heart and chronic kidney disease with heart failure and stage 1 through stage 4 chronic kidney disease, or unspecified chronic kidney disease (principal); E11.22 Type 2 diabetes mellitus with diabetic chronic kidney disease; N18.9 Chronic kidney disease, unspecified; I50.9 Heart failure, unspecified; N17.9 Acute kidney failure, unspecified; D63.1 Anemia in chronic kidney disease; I25.10 Atherosclerotic heart disease of native coronary artery without angina pectoris; J44.9 Chronic obstructive pulmonary disease, unspecified; F17.210 Nicotine dependence, cigarettes, uncomplicated; I25.2 Old myocardial infarction; E11.40 Type 2 diabetes mellitus with diabetic neuropathy, unspecified; E03.9 Hypothyroidism, unspecified; I08.3 Combined rheumatic disorders of mitral, aortic and tricuspid valves; E11.621 Type 2 diabetes mellitus with foot ulcer; L97.519 Non-pressure chronic ulcer of other part of right foot with unspecified severity; L97.529 Non-pressure chronic ulcer of other part of left foot with unspecified severity; Z79.84 Long term (current) use of oral hypoglycemic drugs; Z79.899 Other long term (current) drug therapy; Z88.5 Allergy status to narcotic agent; Z91.013 Allergy to seafood; Z20.822 Contact with and (suspected) exposure to COVID-19; Z95.1 Presence of aortocoronary bypass graft
CPT/HCPCS: 36415; 36416; 71045; 80048; 80053; 80061; 82553; 83036; 83880; 84443; 84484; 85025; 85652; 86140; 90471; 90732; 93005; 93306; 93970; 94664; 96372; 96374; 96376; G0009; G0378; J1650; J1815; J1940; U0003; U0005